=== PATIENT | female | born 1960 | race Caucasian/White ===

== ENCOUNTER → 2016-03-25 | Outpatient (CLI) | payer BC ==
--- NOTE | 2016-03-25 12:00 | MA ---
Screening Digital Mammogram With iCAD Analysis Reason for Examination: Routine screening. Her mother was diagnosed with breast cancer in her 70s. Breast parenchymal density: Type B; Scattered fibroglandular densities. Technique: Four views of each breast are obtained including CC and oblique lateral Jennifer (implant di splaced) and non-Jennifer (implant not displaced) views. Images were reviewed using the iCAD computer a ided detection system. Comparison: March 2015, March 2014, October 2012, October 2011, October 2010, October 2009, October 24.. Findings: Breast implants are in place bilaterally. iCAD is reviewed. No suspicious areas are identif ied. There has been no significant change in the appearance of either breast. Breast implants diminis h the sensitivity of mammography. Impression: Negative mammogram. BI-RADS 1. Recommendation: Routine screening is recommended in one year as long as physical examination is negat [place]. [facility] will send a result letter to the patient. Negative mammography should not preclude additional workup of a clinically suspicious finding. The patient's information is entered into a reminder system with a target due date for her next mammo gram.
== END ==
LOC: BMCIMAGING 08:32
DX: Z12.31 Encounter for screening mammogram for malignant neoplasm of breast (principal); Z80.3 Family history of malignant neoplasm of breast
CPT/HCPCS: G0202

== ENCOUNTER → 2016-05-06 | Outpatient (CLI) | payer BC | LOC: BMCIMAGING 11:27 | PROVIDERS: ATTEND Emergency Medicine | DX: M25.842 Other specified joint disorders, left hand (principal) ==

== ENCOUNTER → 2016-11-18 | Outpatient (CLI) | payer BC | LOC: FIMAGING 09:37 | PROVIDERS: ATTEND Obstetrics & Gynecology | DX: Z13.820 Encounter for screening for osteoporosis (principal) ==

== ENCOUNTER → 2017-03-30 | Outpatient (CLI) | payer BC | LOC: FIMAGING 09:55 | PROVIDERS: ATTEND Obstetrics & Gynecology | DX: Z12.31 Encounter for screening mammogram for malignant neoplasm of breast (principal); Z80.3 Family history of malignant neoplasm of breast ==

== ENCOUNTER 2017-06-22 10:34 | Observation (INO) | payer BC ==
--- NOTE | 2017-06-22 10:43 | EDPHY ---
H & P Time Seen by Provider: 06/22/17 10:37 HPI/ROS: CHIEF COMPLAINT: Abdominal pain HISTORY OF PRESENT ILLNESS: Started on Tuesday night with epigastric discomfort , Tuesday went to her lower abdomen and she could not get warm and developed a fever that night. Today she has pain in her lower abdomen more on the right than the left which is worse with walking and associated with a little bit of dysuria. Radiates a little bit to her right flank into her left lower abdomen. Symptoms mild to moderate and persistent. REVIEW OF SYSTEMS: Eye: no change in vision ENT: no sore throat Cardiac: no chest pain or syncope Pulmonary: no cough or SOB Abdomen: Some chronic diarrhea since March, being worked up with no definitive diagnosis. Musculoskeletal: no back pain Skin: Patient gets a little rash on her belly button between her toes when she gets sick Neuro: no headache Constitutional: Fever and Tuesday as noted : Dysuria no hematuria or frequency A comprehensive 10 point review of systems is otherwise negative aside from elements mentioned in the history of present illness. PAST MEDICAL HISTORY: Hypertension Social history: Nonsmoker, moved to [place] from [place] 10 years ago General Appearance: Alert and conversant, cooperative. Eyes: No scleral icterus. ENT, Mouth: Normal mucous membranes. Respiratory: Normal respiratory effort, breath sounds equal, lungs are clear to auscultation. Cardiovascular: Regular rate and rhythm. Gastrointestinal: Right lower quadrant tenderness with guarding, left lower quadrant palpation causes pain in the right lower quadrant, decreased breath sounds. Neurological: Alert, face symmetric, normal motor and sensory in extremities. Ambulatory. Skin: Warm and dry, no rashes. Musculoskeletal: No CVA tenderness. Psychiatric: Not agitated. Emergency Department course/MDM: Plan for urinalysis, patient declined pain medication, IV fluids. She has abdominal tenderness and differential includes but not limited to appendiceal abscess, appendicitis, diverticulitis. CT scanning discussed and consented. 1137: CT shows appendicitis with appendicolith, plan consult RAJIV Ling 3.375 at his specific request. Results and CT reviewed with the patient at this time. Has 1.2 cm lesion in liver per Shar, needs followup MRI. Patient warned and added to discharge instructions. Smoking Status: Never smoked Constitutional: Initial Vital Signs Temperature (C) 36.7 C 06/22/17 10:34 Heart Rate 92 06/22/17 10:34 Respiratory Rate 16 06/22/17 10:34 Blood Pressure 151/93 H 06/22/17 10:34 O2 Sat (%) 98 06/22/17 10:34 O2 Delivery Mode Room Air Allergies/Adverse Reactions: codeine Allergy (Verified 06/22/17 10:41) Home Medications: Medication Instructions Recorded Amlodipine Besylate 06/22/17 Aspirin 06/22/17 Medical Decision Making - Diagnostics Imaging Results: Imaging Impressions Abdomen CT 06/22/17 11:10 Impression: 1. Acute likely ruptured retrocecal appendicitis with multiple appendicoliths. 2. Indeterminate 1.2 cm structure in the liver, which could represent hemangioma , but cannot characterized on this study. MR abdomen with contrast is recommended for further evaluation. 3. Mild diffuse bladder wall thickening relative to the degree of distention, which could be related to bladder outlet obstruction, inflammation or infection , or other etiology. 4. Additional findings as above. Findings discussed with Dr. Jean-Pierre Robison on 06/22/2017 at 11:45. Discussed with Shar Nelson, appendicitis with appendicolith. Imaging: Discussed imaging studies w/ grease packer Radiologist, I viewed and interpreted images myself Differential Diagnosis: Differential diagnosis considered for abdominal pain including but not limited to appendicitis, diverticulitis, gastritis and urinary tract infection. Consult/Admit Bed Type: [place] [id number] - Data Points Laboratory Results: Laboratory Results 06/22/17 10:50 06/22/17 10:50 06/22/17 06/22/17 06/22/17 10:55 10:50 10:50 WBC 11.96 10^3/uL H 10^3/uL (3.80-9.50) RBC 4.65 10^6/uL 10^6/uL (4.18-5.33) Hgb 15.3 g/dL g/dL (12.6-16.3) Hct 43.3 % % (38.0-47.0) MCV 93.1 fL fL (81.5-99.8) MCH 32.9 pg pg (27.9-34.1) MCHC 35.3 g/dL g/dL (32.4-36.7) RDW 12.1 % % (11.5-15.2) Plt Count 194 10^3/uL 10^3/uL (150-400) MPV 8.4 fL L fL (8.7-11.7) Neut % (Auto) 92.3 % H % (39.3-74.2) Lymph % (Auto) 2.4 % L % (15.0-45.0) [place] % (Auto) 4.6 % % (4.5-13.0) Eos % (Auto) 0.1 % L % (0.6-7.6) Baso % (Auto) 0.3 % % (0.3-1.7) Nucleat RBC Rel Count 0.0 % % (0.0-0.2) Absolute Neuts (auto) 11.04 10^3/uL H 10^3/uL (1.70-6.50) Absolute Lymphs (auto) 0.29 10^3/uL L 10^3/uL (1.00-3.00) Absolute Monos (auto) 0.55 10^3/uL 10^3/uL (0.30-0.80) Absolute Eos (auto) 0.01 10^3/uL L 10^3/uL (0.03-0.40) Absolute Basos (auto) 0.04 10^3/uL 10^3/uL (0.02-0.10) Absolute Nucleated RBC 0.00 10^3/uL 10^3/uL (0-0.01) Immature Gran % 0.3 % % (0.0-1.1) Immature Gran # 0.03 10^3/uL 10^3/uL (0.00-0.10) Sodium 133 mEq/L L mEq/L (135-145) Potassium 4.1 mEq/L mEq/L (3.5-5.2) Chloride 96 mEq/L L mEq/L (97-110) Carbon Dioxide 27 mEq/l mEq/l (22-31) Anion Gap 10 mEq/L mEq/L (8-16) BUN 12 mg/dL mg/dL (7-23) Creatinine 0.9 mg/dL mg/dL (0.6-1.0) Estimated GFR > 60 Glucose 123 mg/dL H mg/dL (70-100) Calcium 9.4 mg/dL mg/dL (8.5-10.4) Urine Color YELLOW Urine Appearance CLEAR Urine pH 7.0 (5.0-7.5) Ur Specific [place] 1.008 (1.002-1.030) Urine Protein NEGATIVE (NEGATIVE) Urine Ketones NEGATIVE (NEGATIVE) Urine Blood 1+ H (NEGATIVE) Urine Nitrate NEGATIVE (NEGATIVE) Urine Bilirubin NEGATIVE (NEGATIVE) Urine Urobilinogen NEGATIVE EU EU (0.2-1.0) Ur Leukocyte Esterase NEGATIVE (NEGATIVE) Urine RBC 1-3 /hpf /hpf (0-3) Urine WBC NONE SEEN /hpf /hpf (0-3) Ur Epithelial Cells TRACE /lpf /lpf (NONE-1+) Urine Glucose NEGATIVE (NEGATIVE) Medications Given: Discontinued Medications Sodium Chloride (Ns) 1,000 mls @ 0 mls/hr IV EDNOW ONE; Wide Open PRN Reason: Protocol Stop: 06/22/17 10:56 Last Admin: 06/22/17 11:08 Dose: 1,000 mls Ceftriaxone Sodium/Dextrose (Rocephin 1 Gm (Premix)) 50 mls @ 100 mls/hr IV EDNOW ONE PRN Reason: Protocol Stop: 06/22/17 12:16 Last Admin: 06/22/17 12:09 Dose: Not Given Metronidazole/Sodium Chloride (Flagyl 500 Mg (Premix)) 100 mls @ 100 mls/hr IV EDNOW ONE PRN Reason: Protocol Stop: 06/22/17 12:46 Last Admin: 06/22/17 12:09 Dose: Not Given Sodium Chloride (Ns) 1,000 mls @ 0 mls/hr IV EDNOW ONE; Wide Open PRN Reason: Protocol Stop: 06/22/17 11:50 Last Admin: 06/22/17 12:05 Dose: 1,000 mls Piperacillin/Tazobactam/Dextrose (Zosyn 3.375 Gm (Premix)) 50 mls @ 100 mls/hr IV EDNOW ONE PRN Reason: Protocol Stop: 06/22/17 12:19 Last Admin: 06/22/17 12:05 Dose: 50 mls Departure - Departure Disposition: [facility] Acute Clinical Impression: Acute appendicitis Qualifiers: Acute appendicitis type: with localized peritonitis Qualified Code(s): K35.3 - Acute appendicitis with localized peritonitis Condition: Good
[2017-06-22] MEDS ORDERED: NS 1,000 ML IV ONE ×2 (10:55→11:49)
[2017-06-22 10:59] LABS: PLATELET COUNT 194 10^3/uL (150-400)
[2017-06-22] MEDS ORDERED: IOPAMIDOL (ISOVUE-300) 100 ML BTL ONE (11:13)
[2017-06-22] MEDS ORDERED: PIPERACILLIN/TAZO 3.375 GM/DEX 50 ML IV ONE (11:50)
[2017-06-22] MEDS ORDERED: LR 1,000 ML IV ONE (13:32)
--- NOTE | 2017-06-22 13:52 | PDANEPAE ---
ANE History of Present Illness acute appendicitis ANE Past Medical History - Pulmonary History Hx Asthma/Reactive Airway Disease: Yes Hx Oxygen in Use at Home: No Hx Sleep Apnea: No - Endocrine History Hx Diabetes: No - Other Health History Other Health History: factor 5 deficiency ANE Review of Systems Review of Systems: ANE Patient History - Allergies Allergies/Adverse Reactions: codeine Allergy (Verified 06/22/17 10:41) - Home Medications Home Medications: Albuterol [Proventil Inhaler HFA (*)] 1 - 2 puffs IH Q4H PRN 06/22/17 [Last Taken Unknown] Aspirin [Aspirin 81mg (*)] 81 mg PO BID 06/22/17 [Last Taken 06/21/17 21:00] Carboxymethylcellulose 1% [Refresh Celluvisc (*)] 1 drop EACHEYE DAILY PRN 06/22 [Last Taken Unknown] Cholecalciferol Vit D3 [Vitamin D3 (*)] 5,000 units PO DAILY 06/22/17 [Last Taken Unknown] Herbals/Supplements -Info Only 1 ea PO DAILY 06/22/17 [Last Taken Unknown] Multivitamins [Multivitamin (*)] 1 each PO DAILY 06/22/17 [Last Taken Unknown] Selenium [Selenium 200mcg (*)] 200 mcg PO DAILY 06/22/17 [Last Taken Unknown] amLODIPine BESYLATE [Norvasc 2.5 mg (*)] 2.5 mg PO HS 06/22/17 [Last Taken 06/21 21:00] - NPO status NPO Since - Liquids (Date): 06/22/17 NPO Since - Liquids (Time): 10:45 NPO Since - Solids (Date): 06/22/17 NPO Since - Solids (Time): 10:45 - Smoking Hx Smoking Status: Never smoked ANE Labs/Vital Signs - Labs Result Diagrams: 06/22/17 10:50 06/22/17 10:50 - Vital Signs Blood Pressure: 137/98 Heart Rate: 89 Respiratory Rate: 18 O2 Sat (%): 98 Height: 170.18 cm Weight: 56.699 kg ANE Physical Exam - Airway Neck exam: FROM Mallampati Score: Class 1 Mouth exam: normal dental/mouth exam - Pulmonary Pulmonary: no respiratory distress - Cardiovascular Cardiovascular: regular rate and rhythym - ASA Status ASA Status: II ANE Anesthesia Plan Anesthesia Plan: general endotracheal anesthesia
--- NOTE | 2017-06-22 14:16 | GHP ---
[f rep st] HISTORY AND PHYSICAL DATE OF ADMISSION: 06/22/2017 ADMITTING DIAGNOSIS: Acute appendicitis with appendicolith. HISTORY: Justa Cummings is a 56-year-old white female who, Tuesday at approximately 10 p.m., had the diffuse onset of an epigastric pain. She slept poorly. By Tuesday morning, it moved down to become periumbilical in location. It became more intense and sharp. She suffered a chill. She had nausea but no vomiting. Tuesday night, she slept poorly. She was not hungry on Tuesday but did eat small amounts of food. She slept poorly last night. She had sips of tea, water, and a fluid smoothie between 9 and 11 this morning. She is not hungry at this point. She has had diarrhea since the of the year. Importantly, she was diagnosed as having irritable bowel disease when she was in college. She has not had a recent upper respiratory tract infection. She has not used antibiotics or traveled outside the [place] in the last 6 months. She has had no prior abdominal surgery and no prior similar symptoms. There is no history of inflammatory bowel disease, though her sister does have Crohn's disease. SOCIAL HISTORY: She is a nonsmoker. She drinks 2 glasses of wine a day. ALLERGIES: She has nausea with codeine. PAST MEDICAL/SURGICAL HISTORY/MEDICATIONS: She was diagnosed with hypertension at the of the month, and has been and on amlodipine 2.5 mg daily. She takes 81 mg aspirin twice a day for factor V Leiden deficiency. This was discovered after a clot in the vein after a blood donation. She had a surgery on her left knee for chronic prepatellar bursa. She had a left biceps reattached. She had wisdom tooth extractions. No history of rheumatic fever, tuberculosis, hepatitis, or transfusions. REVIEW OF SYSTEMS: She is a very active woman who does a lot of rock climbing. There is a question of a concussion in the past. She wears contacts for visual correction. She has exercise-induced asthma and uses an albuterol inhaler p.r.n. She does have allergies. Her last mammogram had been within the year and described as "okay." There are no limits on her activities. No history of steroid use. FAMILY HISTORY: Her mother is 79 years old and has had breast cancer and hypertension. Her father is 80 years old. He has not been tested for factor V Leiden, but his sister has, and she is positive. Her father also has hypertension. The patient has a younger sister, who is 53, and has Crohn's disease. PHYSICAL EXAMINATION: GENERAL: She is awake and alert and in mild distress. Her pain is moderately well controlled at this time. She is quite pleasant. NEUROLOGIC: She is awake, alert, and oriented x3. [place] Coma Scale 15. There are no focal lateralizing neurologic findings. Cranial nerves are intact. LYMPHATIC: There was no cervical, supraclavicular, axillary, or inguinal lymphadenopathy. NECK: There are no carotid bruits. Thyroid is not enlarged. BACK: Unremarkable. LUNGS: Clear to auscultation. CARDIAC: Heart shows S1, S2 to be normal, with normal split of S2 without murmurs, rubs, or gallops. ABDOMEN: Tender with cough at a 4-5 in the suprapubic region. There are hypoactive bowel sounds. Psoas and obturator signs are negative to palpation. She is tender in the left upper quadrant at 2, left mid abdomen is 3 , left lower quadrant is 5, epigastrium is 1, periumbilical area is 2, suprapubic area is 5, right upper quadrant is 3, right mid abdomen is 6, right lower quadrant 7. LABORATORIES: White blood cell count of 12,000 with 92% neutrophils. Hematocrit is 43. Her glucose is 123. Her sodium is 133. Her chloride is 96. Her urine shows specific gravity 1.008. IMAGING: Her CT scan shows an appendix with a thickened wall and periappendiceal stranding. There is an appendicolith present. There is a 1.2 cm structure in the liver, probably consistent with a hemangioma. Followup has been recommended for that. PLAN: I will plan to take her to the operating room for a laparoscopic, possibly open appendectomy. Patient understands the planned procedure and wished to proceed as outlined. /[id number]/MODL MTDD
[2017-06-22] MEDS ORDERED: SUCCINYLCHOLINE CHLORIDE 200 MG/10 ML SYR IVP ONE (14:21)
[2017-06-22] MEDS ORDERED: ROCURONIUM 50 MG/5 ML VIAL ONE (14:21)
[2017-06-22] MEDS ORDERED: fentaNYL 100 MCG/2 ML INJ ONE ×2 (14:21)
[2017-06-22] MEDS ORDERED: PROPOFOL 200 MG/20 ML VIAL ONE (14:22)
[2017-06-22] MEDS ORDERED: HEPARIN 5,000 UNIT/0.5 ML SYR ONE (14:31)
[2017-06-22] MEDS ORDERED: ceFAZolin 1 GM/5 ML SYR ONE (14:32)
[2017-06-22] MEDS ORDERED: HYDROCODONE/APAP 5/325 TAB PO PRN (15:22)
[2017-06-22] MEDS ORDERED: PROMETHAZINE HCL 25 MG/ML INJ IVP PRN (15:22)
[2017-06-22] MEDS ORDERED: fentaNYL 100 MCG/2 ML INJ IVP PRN (15:22)
[2017-06-22] MEDS ORDERED: HYDROmorphONE/DILAUDID 2 MG/ML INJ IVP PRN (15:22)
[2017-06-22] MEDS ORDERED: ONDANSETRON 4 MG/2 ML VIAL IVP PRN ×2 (15:22→16:12)
[2017-06-22] MEDS ORDERED: NALOXONE HCL 0.4 MG/ML INJ IVP PRN (15:22)
[2017-06-22] MEDS ORDERED: ONDANSETRON 4 MG/2 ML VIAL ONE (15:57)
[2017-06-22] MEDS ORDERED: DEXAMETHASONE 4 MG/ML VIAL ONE (15:57)
[2017-06-22] MEDS ORDERED: HYDROmorphone HCL/NS 0.5 MG/ML SYR IVP PRN (16:12)
--- NOTE | 2017-06-22 16:12 | POSTOPPROG ---
Post Op Note Date of Operation: 06/22/17 Surgeon: Gordy Rivera Anesthesia: GET(General Endotracheal) Pre-op Diagnosis: acute appendicitis with appendicolith Post-op Diagnosis: acute appendicitis with appendicolith Indication: acute appendicitis with appendicolith Procedure: laparoscopic appendectomy Findings: acute appendicitis with appendicolith Inf/Abcess present in the surg proc area at time of surgery?: No EBL: Minimal Total fluids administered: 750 Complications: none Specimen(s): appendicitis
[2017-06-22] MEDS ORDERED: MEPERIDINE 25 MG/ML SYR IVP ONE (16:14)
--- NOTE | 2017-06-22 16:14 | POSTANESTH ---
Post Anesthetic Evaluation Cardiovascular Status: Normal, Stable Respiratory Status: Normal, Stable Level of Consciousness/Mental Status: Can Participate in Eval Pain Control: Adequate, Prn Tx Ordered Nausea/Vomiting Control: Adequate, Prn Tx Ordered Complications Possibly Related to Anesthesia: None Noted
[2017-06-22] MEDS ORDERED: MEPERIDINE 25 MG/ML SYR ONE (16:16)
[2017-06-22] MEDS ORDERED: ALBUTEROL 60 PUFFS/8 GM MDI IH PRN (16:20)
[2017-06-22] MEDS ORDERED: LR 1,000 ML IV SCH (16:30)
--- NOTE | 2017-06-22 17:26 | GOP ---
[f rep st] OPERATIVE REPORT DATE OF OPERATION: 06/22/2017 SURGEON: Gordy Rivera MD ANESTHESIA: General endotracheal anesthesia. PREOPERATIVE DIAGNOSIS: Acute appendicitis with appendicolith. POSTOPERATIVE DIAGNOSIS: Acute appendicitis with appendicolith. PROCEDURE PERFORMED: Laparoscopic appendectomy. FINDINGS: Acute appendicitis with appendicolith. SPECIMENS: Appendix. ESTIMATED BLOOD LOSS: Minimal. INDICATIONS: Acute appendicitis with appendicolith. DESCRIPTION OF PROCEDURE: The patient was placed on the operating table in supine position. She had emptied her bladder prior to surgery. The abdomen was carefully clipped and prepped and draped. A surgical time-out was carried out and agreed to by all members of the operative team. A curvilinear incision was planned at the umbilicus and carried through the dermis. A transverse suprapubic incision was planned and carried through the dermis as is a left lower quadrant oblique incision. The dissection was carried out at the umbilicus down to the anterior rectus sheath which was divided in the midline. A pursestring of #0 PDS was placed. The peritoneum was entered. An 11/12 mm disposable Laura trocar was introduced. Intra- abdominal insufflation was carried out to 15 mmHg. A 5 mm port was placed in the left lower quadrant in the suprapubic region. The patient was now placed in 25 degree Trendelenburg position, rotated 5 degrees to the left. The appendix was adherent to the anterior mesenteric fat of the terminal ileum. The appendix was enlarged and inflamed. Photographic documentation was carried out. The appendix was divided down to its base using a Harmonic scalpel. The appendix was now excised using a 45 mm Endo-IRASEMA (2 applications) to take a cuff of cecum with the appendix because the inflammation extends onto the cecum itself. Once the specimen has been resected, it was placed in an EndoCatch bag and delivered via the umbilical port site. Note is made that the fluid in the pelvis is yellow and clear. Irrigation with heparin and Ancef containing irrigant was carried out. Photographic documentation of both ovaries was carried out. Photographic documentation of the liver was carried out as well. Note, the appendix and the resection line had also been photographed. Hemostasis was excellent. Ports were removed under direct vision. The infraumbilical fascial closure was carried out by first placing simple inverted suture in the midpoint of the midline fascial defect. This was tied. The pursestring was now tied. The subcutaneous tissue was well irrigated with heparin and Ancef containing irrigant. Hemostasis was excellent. All incisions were now closed with inverted simple sutures of #4-0 Vicryl. Mastisol and Steri-Strips were placed. Band-Aids were positioned. The patient was transferred to recovery in stable and satisfactory condition. FLUIDS: 750 cc. COMPLICATIONS: None. /[id number]/MODL MTDD
[2017-06-22] MEDS: ACETAMINOPHEN 500 MG TAB PO SCH (17:57)
[2017-06-22] MEDS: KETOROLAC 15 MG/1 ML SDV IVP SCH (17:59)
[2017-06-22] MEDS: PIPERACILLIN/TAZO 3.375 GM/DEX 50 ML IV SCH (18:04)
[2017-06-22] MEDS ORDERED: ASPIRIN 81 MG CHEWABLE TAB PO SCH (21:00)
[2017-06-22] MEDS: ENOXAPARIN 30 MG/0.3 ML SYR SC SCH (21:15)
[2017-06-23] MEDS: PIPERACILLIN/TAZO 3.375 GM/DEX 50 ML IV SCH (00:13)
[2017-06-23] MEDS: KETOROLAC 15 MG/1 ML SDV IVP SCH ×3 (00:14→12:38)
[2017-06-23] MEDS: ACETAMINOPHEN 500 MG TAB PO SCH ×2 (00:14→09:09)
[2017-06-23] MEDS: ENOXAPARIN 30 MG/0.3 ML SYR SC SCH (09:10)
--- NOTE | 2017-06-23 11:35 | SOAPPROG ---
SOAP Progress Note Assessment/Plan: 06/23/17 11:31 POD#1 Assessment: Doing well, Eating, passing stool, feels much better Plan: Discharge Subjective: I feel much better Objective: Vital Signs Temp Pulse Resp BP Pulse Ox 36.6 C 64 16 101/59 L 95 06/23/17 03:55 06/23/17 03:55 06/23/17 03:55 06/23/17 03:55 06/23/17 03:55 06/22/17 06/23/17 06/24/17 05:59 05:59 05:59 Intake Total 1250 1738 Output Total 905 Balance 345 1738 - Time Spent With Patient Time Spent With Patient: 15 - Pending Discharge Pending Discharge Within 24 Hours: Yes Pending Discharge Date: 06/23/17 Pending Discharge Time: 13:00 Physical Exam - Physical Exam General Appearance: WD/WN, alert, no apparent distress Neck: full range of motion, supple, normal inspection Respiratory: chest non-tender, lungs clear, normal breath sounds Cardiac/Chest: regular rate, rhythm Abdomen: normal bowel sounds, non-tender, soft Pelvic Exam: deferred Rectal: deferred Back: Normal inspection Skin: normal color, other (Incisions - clean and dry) Neuro/Psych: no motor/sensory deficits, alert, normal mood/affect, oriented x 3 ICD10 Worksheet Patient Problems: Problems Problem Status Onset Acute appendicitis Acute
[2017-06-23 11:42] VITALS: BP 117/71
--- NOTE | 2017-06-23 13:16 | GDS ---
[f rep st] DISCHARGE SUMMARY DISCHARGE DIAGNOSES: Acute appendicitis with appendicolith. Condition improved. OPERATION PERFORMED: Laparoscopic appendectomy. DISPOSITION: Home. DIET: Unrestricted, although I recommend that she avoid constipating foods such as bananas, rice, ap plesauce, and cheese. Texture is unremarkable. MEDICATIONS AT DISCHARGE: She will take for pain, Tylenol 1000 mg every 8 hours around the clock. S he will take Toradol 10 mg every 6 hours and when the 12 pills have been completed, she will take 200 mg of Motrin as needed. She will be given 15 tablets of 2 mg of Dilaudid. She is to take 1-2 table ts every 4 hours as needed for severe pain. She will continue her Norvasc 2.5 mg q.h.s., her seleniu m 200 mcg daily, her cholecalciferol 5000 units daily, a multivitamin daily. She is to make sure her multivitamin contains 100% of the RDUs of zinc, copper, and C. She will continue her herbal supplem ents. She will use her Proventil inhaler 1-2 puffs q.4 as needed. She will continue her carboxymeth ylcellulose 1% eyedrops. She will discontinue her aspirin. She will use Lovenox 30 mg subcu b.i.d. because of her factor V Leiden deficiency for the next 10 days. ACTIVITY: She is to follow up with her family doctor for an MRI for evaluation of her abdomen for wh at appears to be a possible hemangioma. For 3 weeks she is to lift less than 10 pounds. She is to s hower only to keep her Steri-Strips in place. She is to watch for signs of infection. The superfici al signs of infection will be redness, warmth, swelling, and tenderness. The deep signs will be fati khadijah, malaise, loss of appetite, fevers, and chills. She is to follow up with Dr. Mj Allison, Dr. Carissa Benedict, Dr. Ronaldo Aguillon in approximately 2 weeks for re-evaluation. HOSPITAL COURSE: The patient is admitted and taken to the operating room. She has done quite well a fter surgery. As of the morning after surgery, she has moved her bowels. She is taking a regular di et. Her pain is well controlled. In short, she is set for discharge. /[id number]/MODL
== END 2017-06-23 13:12 | disposition home or self-care (01) ==
LOC: F3E 15:08
PROVIDERS: ADMIT Surgery; ATTEND Surgery
PROC: 0DTJ4ZZ Resection of Appendix, Percutaneous Endoscopic Approach (ICD-10-PCS; principal; 2017-06-22 14:15)
DX: K35.89 Other acute appendicitis (principal); D68.2 Hereditary deficiency of other clotting factors; K76.9 Liver disease, unspecified
CPT/HCPCS: 44970; 74177; 96361; 96365; 99285; G0378; J0330; J1100; J1644; J1650; J1885; J2175; J2405; J2543; J2704; J3010; Q9967

== ENCOUNTER → 2017-07-13 | Outpatient (CLI) | payer BC | LOC: BMCIMAGING 15:10 | PROVIDERS: ATTEND Family Medicine | DX: E04.2 Nontoxic multinodular goiter (principal) | CPT/HCPCS: 76536-PO ==

== ENCOUNTER 2017-10-30 19:14 | Emergency (ER) | payer BC ==
[2017-10-30] MEDS ORDERED: NS 1,000 ML IV ONE (19:51)
--- NOTE | 2017-10-30 19:53 | EDPHY ---
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 Last chemotherapy was 2.5 weeks ago. Since the chemotherapy, she has felt quite fatigued, much more so than with the first round of chemo. Mainly laying around the house and sleeping much of the day. Onset of intermittent abdominal pain 2-3 days ago, associated with nausea. The pain varies in location and is mild/moderate. Low-grade fever of 100 associated with shaking chills started just prior to arrival. No URI sx, dysuria, vomiting/diarrhea, rash. REVIEW OF SYSTEMS: complete 10 point ROS negative except at noted in the HPI - Personal History Current Tetanus/Diphtheria Vaccine: Yes Current Tetanus Diphtheria and Acellular Pertussis (TDAP): Yes - Medical/Surgical History PMH: Appendiceal CA, s/p partial colectomy appendecomy Hx Asthma: Yes Hx Chronic Respiratory Disease: No Hx Diabetes: No Hx Cardiac Disease: No Hx Renal Disease: No Hx Cirrhosis: No Hx Alcoholism: No Hx HIV/AIDS: No Hx Splenectomy or Spleen Trauma: No Other PMH: HTN. - Social History Smoking Status: Never smoked Alcohol Use: Sober Drug Use: None Additional Social History: Oncologist: Dr. Almaguer - Physical Exam Exam: General Appearance: Alert, pleasant, nontoxic-appearing Eyes: Pupils equal and round, no conjunctival pallor or injection ENT, Mouth: Mucous membranes moist, no oral lesions Neck: Normal inspection, no adenopathy Respiratory: Lungs are clear to auscultation Cardiovascular: Regular rate and rhythm Gastrointestinal: Abdomen is soft, epigastric/LUQ and suprapubic tenderness, without peritoneal signs Neurological: A&O, nonfocal, normal gait Skin: Warm and dry, no rash Extremities: Nontender, no pedal edema Psychiatric: Mood and affect normal Constitutional: Initial Vital Signs Temperature (C) 37.7 C 10/30/17 19:20 Heart Rate 87 10/30/17 19:20 Respiratory Rate 18 10/30/17 19:20 Blood Pressure 144/79 H 10/30/17 19:20 O2 Sat (%) 97 10/30/17 19:20 O2 Delivery Mode Room Air Allergies/Adverse Reactions: codeine Allergy (Verified 10/30/17 19:29) oxycodone Allergy (Verified 10/30/17 19:29) Home Medications: Medication Instructions Recorded Albuterol [Proventil Inhaler HFA 1 - 2 puffs IH Q4H PRN 06/22/17 (*)] Carboxymethylcellulose 1% [Refresh 1 drop EACHEYE DAILY PRN 06/22/17 Celluvisc (*)] Cholecalciferol Vit D3 [Vitamin D3 5,000 units PO DAILY 06/22/17 (*)] Herbals/Supplements -Info Only 1 ea PO DAILY 06/22/17 Multivitamins [Multivitamin (*)] 1 each PO DAILY 06/22/17 amLODIPine BESYLATE [Norvasc 2.5 2.5 mg PO HS 06/22/17 mg (*)] Acetaminophen [Tylenol ES 500 mg 1,000 mg PO Q8H tab 06/23/17 (*)] Capecitabine 10/30/17 Cefdinir [Omnicef (*)] 300 mg PO BID #20 cap 10/30/17 Dexamethasone 10/30/17 OXALIplatin 10/30/17 Ondansetron [Ondansetron Odt] 8 mg PO ONCE 10/30/17 Medical Decision Making - Diagnostics Imaging Results: Abdomen CT 10/30/17 19:51 Impression:1. Abnormal matted, thick walled loops of jejunum in the left flank may represent evidence of an internal hernia or enteritis. 2. Constipation versus lower sigmoid-rectal fecal impaction. 3. Gastric distention. Might this patient benefit from an NG tube? 4. Chronic mild urinary bladder wall thickening. UTI? 4. Stable single small hepatic lesion of undetermined clinical significance. Results discussed with Dr. Cannon at 8:57 PM. General information for patients regarding this examination can be found at [email or web address]. If you have questions or comments about this report, please contact me at (hospital) or [phone] (cell). Chest X-Ray 10/30/17 19:51 Impression: Normal chest. No pneumonia. Imaging: Discussed imaging studies w/ fisher scallop Radiologist, I viewed and interpreted images myself ED Course/Re-evaluation: This patient presents with low-grade fever 2.5 weeks after last chemotherapy, associated with abdominal pain and nausea, without peritoneal signs. Fever workup initiated, with chest x-ray, urinalysis and CT scan of the abdomen and pelvis. 8:30 p.m.-not neutropenic, white blood cell count is 3.3. Chest x-ray is unremarkable. CT scan results d/w pt/. Dip urinalysis is positive for leukocytes and nitrates. Urine culture sent. Will treat for urinary tract infection. Keflex 500 mg orally given. Prescription for Omnicef given. Follow up with oncologist in 1-2 days for recheck. Differential Diagnosis: Differential diagnosis includes pyelonephritis, cholecystitis, influenza, cellulitis, pneumonia, abscess, meningitis. - Data Points Laboratory Results: Laboratory Results 10/30/17 19:43 10/30/17 19:43 Microbiology Results: MICROBIOLOGY 10/30/17 19:43 Blood Blood Culture - Preliminary 10/30/17 20:02 Blood Blood Culture - Preliminary 10/30/17 20:45 Urine,Clean Catch Urine Culture - Preliminary Gram Neg Srinivas Lactose Lining Finisher Medications Given: Discontinued Medications Cephalexin HCl (Keflex) 500 mg PO EDNOW ONE PRN Reason: Protocol Stop: 10/30/17 21:06 Last Admin: 10/30/17 21:14 Dose: 500 mg Sodium Chloride (Ns) 1,000 mls @ 0 mls/hr IV ONCE ONE; Wide Open PRN Reason: Protocol Stop: 10/30/17 19:52 Last Admin: 10/30/17 20:01 Dose: 1,000 mls Point of Care Test Results: Urine Dip Collection Date 10/30/17 Collection Time 20:45 Specific [place] (1.002-1.030) 1.005 PH (5.0-7.5) 6.5 Leukocytes (Negative) 2+ Nitrites (Negative) Positive Protein (Negative) Negative Glucose (Negative) Negative Ketones (Negative) Negative Urobilnogen (0.2-1.0 EU) 0.2 Bilirubin (Negative) Negative Blood (Negative) Negative Departure - Departure Disposition: Home, Routine, Self-Care Clinical Impression: Urinary tract infection Qualifiers: Urinary tract infection type: acute cystitis Hematuria presence: without hematuria Qualified Code(s): N30.00 - Acute cystitis without hematuria Condition: Good Instructions: Urinary Tract Infection in Children (ED), Urinary Tract Infection in Women (ED) Additional Instructions: Return for worsening symptoms or any concerns. Referrals: Andorsky,Adi, MD [Medical Doctor] - 1-2 days without fail Prescriptions: Cefdinir [Omnicef (*)] 300 mg PO BID #20 cap
[2017-10-30 19:57] LABS: PLATELET COUNT 103 10^3/uL (150-400)
[2017-10-30] MEDS ORDERED: IOPAMIDOL (ISOVUE-300) 100 ML BTL ONE (20:19)
[2017-10-30] MEDS ORDERED: CEPHALEXIN 500 MG CAP PO ONE (21:05)
[2017-10-30 21:16] VITALS: BP 141/85
== END 2017-10-30 21:18 | disposition home or self-care (01) ==
DX: N30.00 Acute cystitis without hematuria (principal)
CPT/HCPCS: Q9967

== ENCOUNTER → 2017-11-11 | Outpatient (CLI) | payer BC | LOC: FIMAGING 14:21 | PROVIDERS: ATTEND Obstetrics & Gynecology | DX: N63.10 Unspecified lump in the right breast, unspecified quadrant (principal); N63.20 Unspecified lump in the left breast, unspecified quadrant ==

== ENCOUNTER 2018-01-20 10:39 | Day surgery (SDC) | payer BC ==
[2018-01-20] MEDS ORDERED: ceFAZolin 2 GM/DEXTROSE 100 ML IV ONE (11:08)
--- NOTE | 2018-01-20 13:27 | PDHPUP ---
History & Physical Update H&P update statement: This history and physical update is based on an assessment of the patient which was completed after admission or registration (within 24 hours), but prior to the surgery/procedure. H&P update: H&P reviewed & patient examined, no change in patient's condition since H&P completed
[2018-01-20] MEDS ORDERED: MIDAZOLAM 2 MG/2 ML VIAL IVP ONE (14:27)
--- NOTE | 2018-01-20 14:42 | PDANEPAE ---
ANE History of Present Illness Laparoscopic ventral hernia Khadijah SUN Past Medical History - Cardiovascular History Hx Hypertension: No Hx Arrhythmias: No Hx Chest Pain: No Hx Coronary Artery / Peripheral Vascular Disease: No Hx CHF / Valvular Disease: No Hx Palpitations: No Cardiovascular History Comment: current blood clot in left upper arm- no blood pressures or iv please - Pulmonary History Hx COPD: No Hx Asthma/Reactive Airway Disease: Yes Hx Recent Upper Respiratory Infection: No Hx Oxygen in Use at Home: No Hx Sleep Apnea: No Sleep Apnea Screening Result - Last Documented: Negative Pulmonary History Comment: occ asthma- instructed pt to bring inhaler - Neurologic History Hx Cerebrovascular Accident: No Hx Seizures: No Hx Dementia: No - Endocrine History Hx Diabetes: No Hypothyroid: No Hyperthyroid: No - Renal History Hx Renal Disorders: No - Liver History Hx Hepatic Disorders: No - Cancer History Hx Cancer: Yes Cancer History Comment: appendix ca with surgery and chemo 09/2017- 12/2017 - Congenital Disorder History Hx Congenital Disorders: No - GI History Hx Gastrointestinal Disorders: Yes Gastrointestinal History Comment: hx of hemicolectomy - Other Health History 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 wears contacts. tiny residual of hand foot from chemo treatment - Chronic Pain History Chronic Pain: No - Surgical History Prior Surgeries: 07/22/17 right hemicolectomy and omentum. 06/22/[address] Rivera. 2013 removal of free patella- left. 2006 breast augmentation. 2013 repair of torn bicep- left ANE Review of Systems Review of Systems: - Exercise capacity METS (RN): 4 METS ANE Patient History - Allergies Allergies/Adverse Reactions: codeine Allergy (Verified 01/13/18 15:59) nausea oxycodone Allergy (Verified 01/13/18 15:59) nausea - Home Medications Home Medications: Herbals/Supplements -Info Only 06/22/17 [Last Taken 01/13/18] Albuterol PRN 01/13/18 [Last Taken Unknown] Aspirin 81mg (*) 01/13/18 [Last Taken 01/13/18] Flonase Nasal [place] 01/13/18 [Last Taken Unknown] Nitrofurantoin 01/13/18 [Last Taken Unknown] Noritate 1% Cr (RX) 01/13/18 [Last Taken Unknown] - NPO status NPO Status: no food or drink >8 hours NPO Since - Liquids (Date): 01/20/18 NPO Since - Liquids (Time): 09:00 NPO Since - Solids (Date): 01/19/18 NPO Since - Solids (Time): 20:00 - Anes Hx Anes Hx: no prior problems, post operative nausea - Smoking Hx Smoking Status: Never smoked Marijuana use: No - Alcohol Use Alcohol Use: Rarely - Family Anes Hx Family Hx Anesthesia Complications: none ANE Labs/Vital Signs - Vital Signs Heart Rate: 67 Respiratory Rate: 16 O2 Sat (%): 97 Height: 168.91 cm Weight: 54.431 kg ANE Physical Exam - Airway Neck exam: FROM Mallampati Score: Class 2 Mouth exam: normal dental/mouth exam, poor dentition - Cardiovascular Cardiovascular: regular rate and rhythym, no murmur, rub, or gallop - ASA Status ASA Status: II ANE Anesthesia Plan Anesthesia Plan: general endotracheal anesthesia
[2018-01-20] MEDS ORDERED: fentaNYL 250 MCG/5 ML INJ ONE (14:48)
[2018-01-20] MEDS ORDERED: PROPOFOL/EMULSION 500 MG/50 ML BOTTLE IV ONE (14:48)
[2018-01-20] MEDS ORDERED: BUPIVACAINE 0.5% 30 ML SDV ONE (15:01)
[2018-01-20] MEDS ORDERED: DEXAMETHASONE 4 MG/ML VIAL ONE (16:07)
[2018-01-20] MEDS ORDERED: ROCURONIUM 100 MG/10 ML VIAL ONE (16:07)
[2018-01-20] MEDS ORDERED: ONDANSETRON 4 MG/2 ML VIAL ONE (16:08)
[2018-01-20] MEDS ORDERED: PROPOFOL 200 MG/20 ML VIAL ONE (16:09)
[2018-01-20] MEDS ORDERED: NALOXONE HCL 0.4 MG/ML INJ IVP PRN (16:12)
[2018-01-20] MEDS ORDERED: ONDANSETRON 4 MG/2 ML VIAL IVP PRN (16:12)
[2018-01-20] MEDS ORDERED: PROMETHAZINE HCL 25 MG/ML INJ IVP PRN (16:12)
[2018-01-20] MEDS ORDERED: HYDROCODONE/APAP 5/325 TAB PO PRN (16:12)
[2018-01-20] MEDS ORDERED: fentaNYL 100 MCG/2 ML INJ IVP PRN (16:12)
--- NOTE | 2018-01-20 16:17 | POSTOPPROG ---
Post Op Note Date of Operation: 01/20/18 Surgeon: Casi Benedict Anesthesiologist: sojna Anesthesia: GET(General Endotracheal) Pre-op Diagnosis: ventral hernia Post-op Diagnosis: same Indication: 57 yo s/p right selin with ventral hernia Procedure: davinci ventral hernia repair Findings: 1 cm umbilical defect and diastasis Inf/Abcess present in the surg proc area at time of surgery?: No Specimen(s): none
[2018-01-20] MEDS ORDERED: SUGAMMADEX SODIUM 200 MG/2 ML VIAL IVP ONE (16:24)
[2018-01-20] MEDS ORDERED: fentaNYL 100 MCG/2 ML INJ ONE (16:50)
[2018-01-20 18:21] VITALS: BP 157/106
--- NOTE | 2018-01-22 05:58 | GOP ---
DATE OF OPERATION: 01/20/2018 SURGEON: Casi Benedict MD RADIOCOMMUNICATIONS TECHNICIAN: Honey Burciaga, MARKELL. ANESTHESIA: General. ANESTHESIOLOGIST: Mayra Garrett MD. PREOPERATIVE DIAGNOSIS: Ventral hernia. POSTOPERATIVE DIAGNOSIS: Ventral hernia. PROCEDURE PERFORMED: Da Hua ventral hernia repair. FINDINGS: 1 cm umbilical defect and diastasis. SPECIMENS: None. INDICATIONS: The patient is a 57-year-old woman who underwent right hemicolectomy. She developed a hernia at her midline. DESCRIPTION OF PROCEDURE: Patient was brought into the operating room, placed supine on the table, a nd general anesthesia was administered. Her abdomen was prepped and draped in the usual sterile fas ion. I infiltrated all sites with 0.5% Marcaine prior to making incisions. I made an incision in th e mid portion of her abdomen. I elevated it, and I inserted the Veress needle. Her abdomen insuffla luis easily to a pressure of 15 mmHg with a 5 mm trocar and the camera, I explored her abdomen. No in juries from Veress needle placement. Under direct vision I placed two 8 mm da Hua ports on the lat eral abdomen and then, I upsized her central port for the camera port. She had a 1 cm defect by her umbilicus. She also appeared to have some diastasis and widening where the previous suture repair wa s performed. I used 0 V-Loc 180, and I sutured the defect closed. Since the defect was so small, I did not feel that mesh was indicated, especially since this would need to be placed in the peritoneal cavity. Trocars were removed under direct vision. The abdomen was allowed to desufflate. Skin bonilla sed with 4-0 Monocryl. Dermabond applied. She was awakened in the operating room, extubated, transf erred to PACU in stable condition. /[id number]/MODL
== END 2018-01-20 18:45 | disposition home or self-care (01) ==
LOC: FSGY 10:39
PROVIDERS: ATTEND Surgery
PROC: 8E0W4CZ Robotic Assisted Procedure of Trunk Region, Percutaneous Endoscopic Approach (ICD-10-PCS; 2018-01-20)
PROC: 0WQF4ZZ Repair Abdominal Wall, Percutaneous Endoscopic Approach (ICD-10-PCS; principal; 2018-01-20 12:00)
DX: K43.2 Incisional hernia without obstruction or gangrene (principal); M62.08 Separation of muscle (nontraumatic), other site; I10 Essential (primary) hypertension; D68.51 Activated protein C resistance; J45.990 Exercise induced bronchospasm; Z85.038 Personal history of other malignant neoplasm of large intestine; Z90.49 Acquired absence of other specified parts of digestive tract; Z92.21 Personal history of antineoplastic chemotherapy
CPT/HCPCS: J0690; J1100; J2250; J2405; J2704; J3010

== ENCOUNTER 2018-04-13 18:04 | Inpatient (IN) | payer BC ==
--- NOTE | 2018-04-13 18:22 | EDPHY ---
H & P Stated Complaint: RLQ abd pain - Personal History Current Tetanus/Diphtheria Vaccine: Yes Current Tetanus Diphtheria and Acellular Pertussis (TDAP): Yes - Medical/Surgical History Hx Asthma: Yes Hx Chronic Respiratory Disease: No Hx Diabetes: No Hx Cardiac Disease: No Hx Renal Disease: No Hx Cirrhosis: No Hx Alcoholism: No Hx HIV/AIDS: No Hx Splenectomy or Spleen Trauma: No Other PMH: HTN, appy, appendix CA - Social History Smoking Status: Never smoked <[place] White - Last Filed: 04/13/18 21:45> <Brittany Barrera - Last Filed: 04/14/18 04:22> Time Seen by Provider: 04/13/18 18:22 HPI/ROS: CHIEF COMPLAINT: Abdominal pain HISTORY OF PRESENT ILLNESS: 57-year-old female arrives via private vehicle complaining of abdominal pain started approximately 7:00 a.m. Today became progressively worse throughout the day. The patient's medical history significant for appendiceal cancer with subsequent right hemicolectomy in June 2017 at [facility]. She is chronically loose stool. Today she was riding the bus, developed abdominal pain , multiple episodes of vomiting. Bowel movements at baseline. No melena hematochezia. Patient was seen at [facility] had abdominal x-ray and urinalysis performed and referred to the ER for evaluation. PRIMARY CARE PROVIDER: REVIEW OF SYSTEMS: 10 systems reviewed and negative with the exception of the elements mentioned in the history of present illness PAST MEDICAL & SURGICAL HISTORY: Hemicolectomy. Appendix cancer. SOCIAL HISTORY: Nonsmoker. No drug use. PHYSICAL EXAM (Prior to examination, patient consented to physical exam, hands were washed and my usual and customary physical exam procedures followed) 1) GENERAL: Well-developed, well-nourished, alert and oriented. Appears is uncomfortable, guarding abdomen. 2) HEAD: Normocephalic, atraumatic 3) HEENT: Pupils equal, round, reactive to light bilaterally. Sclera anicteric. Nasopharynx, oropharynx, clear, no lesions. Dry mucous membranes. 4) NECK: Full range of motion, no meningeal signs. 5) LUNGS: Clear auscultation bilaterally, no wheezes, no rhonchi, no retractions. 6) HEART: Regular rate and rhythm, no murmur, no heave, no gallop. 7) ABDOMEN: Surgical scars noted. Diffusely tender to palpation periumbilical region. No distention. No tympany. Negative Agustin's. 8) MUSCULOSKELETAL: Moving all extremities, no focal areas of tenderness, no obvious trauma. No peripheral edema or discoloration. 9) BACK: No CVA tenderness, no midline vertebral tenderness, no fluctuance, no step-off, no obvious trauma, no visual or palpable abnormality. 10) SKIN: No rash, no petechiae. 11) Psychiatric: Patient is oriented X 3, there is no agitation. DIFFERENTIAL DIAGNOSIS: In no particular order including but not limited to bowel obstruction, malignancy, gastroenteritis ([place] White) Constitutional: Initial Vital Signs Temperature (C) 37.2 C 04/13/18 18:13 Heart Rate 73 04/13/18 18:13 Respiratory Rate 16 04/13/18 18:13 Blood Pressure 161/111 H 04/13/18 18:13 O2 Sat (%) 97 04/13/18 18:13 O2 Delivery Mode Room Air Allergies/Adverse Reactions: codeine Allergy (Verified 01/13/18 15:59) nausea oxycodone Allergy (Verified 01/13/18 15:59) nausea tramadol Allergy (Verified 04/13/18 20:52) nausea Home Medications: Medication Instructions Recorded Herbals/Supplements -Info Only 1 ea MISC AD 06/22/17 Albuterol [Proventil Inhaler HFA 2 puffs IH DAILY PRN #0 01/13/18 (*)] Aspirin [Aspirin 81mg (*)] 81 mg PO HS #0 01/13/18 Fluticasone Nasal [Flonase Nasal 1 sprays EACHNARE BID #0 01/13/18 [place] (RX)] metroNIDAZOLE 1% [Noritate 1%] 1 iman TP BID PRN #0 01/13/18 Multivitamins [Multivitamin (*)] 1 each PO DAILY 04/13/18 [place]-3 Fatty Acids [Fish Oil 1000 1,000 mg PO DAILY 04/13/18 mg (*)] Medical Decision Making <[place] White - Last Filed: 04/13/18 21:45> - Diagnostics Imaging: Discussed imaging studies w/ call taker Radiologist <Brittany Barrera - Last Filed: 04/14/18 04:22> - Diagnostics Imaging Results: Imaging Impressions Abdomen CT 04/13/18 19:16 Impression: 1. Gastric submucosal thickening, more pronounced than on the previous study. As clinically directed, endoscopy could be considered for additional assessment. 2. Status post appendectomy and partial right colectomy. 3. Trace fluid in the right upper quadrant of the abdomen (this was also present on the 10/22 study). Findings were discussed with BRITTANY BARRERA MD at 20:30, on 04/13/2018. Imaging Impressions Abdomen CT 04/13/18 19:16 Impression: 1. Gastric submucosal thickening, more pronounced than on the previous study. As clinically directed, endoscopy could be considered for additional assessment. 2. Status post appendectomy and partial right colectomy. 3. Trace fluid in the right upper quadrant of the abdomen (this was also present on the 10/22 study). Findings were discussed with BRITTANY BARRERA MD at 20:30, on 04/13/2018. Images reviewed myself ([place] White) ED Course/Re-evaluation: Care of patient under supervision of secondary supervising physician Dr Barrera with whom I discussed case and also evaluated patient. Discussed with the patient her imaging results showing thickening of the stomach however no surgical abdominal pathology. She remains uncomfortable. We discussed hospital admission for observation, continued hydration and pain control, possible GI consultation for upper GI endoscopic evaluation. Doubt acute cholecystitis. Doubt acute pancreatitis. Patient is agreeable with this plan. 8:55 p.m.: Consultation with hospitalist Dr. Gomez who will admit patient. ( Modesto White) Other Provider: PHYSICIAN DOCUMENTATION: The patient was evaluated and managed by the Physician Harness Worker and myself. I have reviewed the chart and agree with the findings and plan of care as documented. In addition, I examined the patient myself at 1835. History confirmed as the abdominal pain nontraumatic with history of appendectomy and hemicolectomy. Physical findings as follows: Vital signs reviewed including afebrile with normal heart rate. Plan for CT abdomen and pelvis discussed and consented. Fentanyl IV for pain, her medication allergies are nausea. 2034: [facility] per [facility] shows thickened stomach, otherwise not changed from previous. Still symptomatic, admit for further evaluation. I am the secondary supervising physician. (Brittany Barrera) - Data Points Laboratory Results: Laboratory Results 04/13/18 19:00 04/13/18 19:00 04/13/18 04/13/18 04/13/18 19:55 19:13 19:00 WBC RBC Hgb POC Hgb 16.3 gm/dL gm/dL (12.6-16.3) Hct POC Hct 48 % H % (38-47) MCV MCH MCHC RDW Plt Count MPV Neut % (Auto) Lymph % (Auto) [place] % (Auto) Eos % (Auto) Baso % (Auto) Nucleat RBC Rel Count Absolute Neuts (auto) Absolute Lymphs (auto) Absolute Monos (auto) Absolute Eos (auto) Absolute Basos (auto) Absolute Nucleated RBC Immature Gran % Immature Gran # POC Sodium 134 mEq/L L mEq/L (135-145) Sodium POC Potassium 3.8 mEq/L mEq/L (3.3-5.0) Potassium POC Chloride 97 mEq/L mEq/L (97-110) Chloride Carbon Dioxide POC Total CO2 22 mEq/L mEq/L (22-31) Anion Gap POC BUN 14 mg/dL mg/dL (7-23) BUN Creatinine POC Creatinine 0.9 mg/dL mg/dL (0.6-1.0) Estimated GFR Glucose POC Glucose 118 mg/dL H mg/dL (70-100) Calcium Total Bilirubin Conjugated Bilirubin Unconjugated Bilirubin AST ALT Alkaline Phosphatase Total Protein Albumin Lipase Beta HCG, Qual NEGATIVE Urine Color PALE YELLOW Urine Appearance CLEAR Urine pH 7.0 (5.0-7.5) Ur Specific [place] 1.025 (1.002-1.030) Urine Protein NEGATIVE (NEGATIVE) Urine Ketones TRACE H (NEGATIVE) Urine Blood NEGATIVE (NEGATIVE) Urine Nitrate NEGATIVE (NEGATIVE) Urine Bilirubin NEGATIVE (NEGATIVE) Urine Urobilinogen NEGATIVE EU EU (0.2-1.0) Ur Leukocyte Esterase NEGATIVE (NEGATIVE) Urine RBC 1-3 /hpf /hpf (0-3) Urine WBC 1-3 /hpf /hpf (0-3) Ur Epithelial Cells TRACE /lpf /lpf (NONE-1+) Urine Glucose NEGATIVE (NEGATIVE) 04/13/18 04/13/18 19:00 19:00 WBC 7.11 10^3/uL 10^3/uL (3.80-9.50) RBC 4.89 10^6/uL 10^6/uL (4.18-5.33) Hgb 15.9 g/dL g/dL (12.6-16.3) POC Hgb Hct 44.2 % % (38.0-47.0) POC Hct MCV 90.4 fL fL (81.5-99.8) MCH 32.5 pg pg (27.9-34.1) MCHC 36.0 g/dL g/dL (32.4-36.7) RDW 11.9 % % (11.5-15.2) Plt Count 217 10^3/uL 10^3/uL (150-400) MPV 8.0 fL L fL (8.7-11.7) Neut % (Auto) 86.6 % H % (39.3-74.2) Lymph % (Auto) 9.6 % L % (15.0-45.0) [place] % (Auto) 3.1 % L % (4.5-13.0) Eos % (Auto) 0.0 % L % (0.6-7.6) Baso % (Auto) 0.3 % % (0.3-1.7) Nucleat RBC Rel Count 0.0 % % (0.0-0.2) Absolute Neuts (auto) 6.16 10^3/uL 10^3/uL (1.70-6.50) Absolute Lymphs (auto) 0.68 10^3/uL L 10^3/uL (1.00-3.00) Absolute Monos (auto) 0.22 10^3/uL L 10^3/uL (0.30-0.80) Absolute Eos (auto) 0.00 10^3/uL L 10^3/uL (0.03-0.40) Absolute Basos (auto) 0.02 10^3/uL 10^3/uL (0.02-0.10) Absolute Nucleated RBC 0.00 10^3/uL 10^3/uL (0-0.01) Immature Gran % 0.4 % % (0.0-1.1) Immature Gran # 0.03 10^3/uL 10^3/uL (0.00-0.10) POC Sodium Sodium 130 mEq/L L mEq/L (135-145) POC Potassium Potassium 4.0 mEq/L mEq/L (3.5-5.2) POC Chloride Chloride 98 mEq/L mEq/L (97-110) Carbon Dioxide 22 mEq/l mEq/l (22-31) POC Total CO2 Anion Gap 10 mEq/L mEq/L (6-14) POC BUN BUN 15 mg/dL mg/dL (7-23) Creatinine 0.8 mg/dL mg/dL (0.6-1.0) POC Creatinine Estimated GFR > 60 Glucose 118 mg/dL H mg/dL (70-100) POC Glucose Calcium 9.9 mg/dL mg/dL (8.5-10.4) Total Bilirubin 0.8 mg/dL mg/dL (0.1-1.4) Conjugated Bilirubin 0.3 mg/dL mg/dL (0.0-0.5) Unconjugated Bilirubin 0.5 mg/dL mg/dL (0.0-1.1) AST 27 IU/L IU/L (14-46) ALT 34 IU/L IU/L (9-52) Alkaline Phosphatase 88 IU/L IU/L (38-126) Total Protein 7.4 g/dL g/dL (6.3-8.2) Albumin 4.8 g/dL g/dL (3.5-5.0) Lipase 42 IU/L IU/L (23-300) Beta HCG, Qual Urine Color Urine Appearance Urine pH Ur Specific [place] Urine Protein Urine Ketones Urine Blood Urine Nitrate Urine Bilirubin Urine Urobilinogen Ur Leukocyte Esterase Urine RBC Urine WBC Ur Epithelial Cells Urine Glucose Medications Given: Artificial Tears (Natural Balance Tears) 1 drop EACHEYE PRN PRN PRN Reason: Dry Irritated Eyes Stop: 10/10/18 22:49 Last Admin: 04/13/18 23:49 Dose: 1 drop Sodium Chloride (1/2 Ns) 1,000 mls @ 100 mls/hr IV CONT KATHI Stop: 10/10/18 22:14 Last Admin: 04/13/18 23:46 Dose: 1,000 mls Pantoprazole Sodium (Protonix) 40 mg IVP DAILY KATHI Stop: 10/10/18 22:59 Last Admin: 04/14/18 00:12 Dose: 40 mg Discontinued Medications Fentanyl (Sublimaze) 100 mcg IVP EDNOW ONE Stop: 04/13/18 18:44 Last Admin: 04/13/18 19:08 Dose: 100 mcg Fentanyl (Sublimaze) 50 mcg IVP EDNOW ONE Stop: 04/13/18 20:46 Last Admin: 04/13/18 20:55 Dose: 50 mcg Sodium Chloride (Ns) 1,000 mls @ 0 mls/hr IV EDNOW ONE; Wide Open PRN Reason: Protocol Stop: 04/13/18 18:44 Last Admin: 04/13/18 19:07 Dose: 1,000 mls Lorazepam (Ativan Injection) 1 mg IVP ONCE ONE Stop: 04/13/18 22:50 Last Admin: 04/13/18 23:47 Dose: 1 mg Ondansetron HCl (Zofran) 4 mg IVP EDNOW ONE Stop: 04/13/18 18:44 Last Admin: 04/13/18 19:08 Dose: 4 mg Point of Care Test Results: Chemistry 04/13/18 19:13 POC Sodium 134 mEq/L L mEq/L (135-145) POC Potassium 3.8 mEq/L mEq/L (3.3-5.0) POC Chloride 97 mEq/L mEq/L (97-110) POC Total CO2 22 mEq/L mEq/L (22-31) POC BUN 14 mg/dL mg/dL (7-23) POC Creatinine 0.9 mg/dL mg/dL (0.6-1.0) POC Glucose 118 mg/dL H mg/dL (70-100) ISTAT H&H 04/13/18 19:13 POC Hgb 16.3 gm/dL gm/dL (12.6-16.3) POC Hct 48 % H % (38-47) Departure <[place] White - Last Filed: 04/13/18 21:45> <Brittany Barrera - Last Filed: 04/14/18 04:22> - Departure Disposition: [facility] Inpatient Acute Clinical Impression: Abdominal pain Qualifiers: Abdominal location: periumbilical Qualified Code(s): R10.33 - Periumbilical pain Condition: Fair
[2018-04-13] MEDS ORDERED: fentaNYL 100 MCG/2 ML INJ IVP ONE ×2 (18:43→20:45)
[2018-04-13] MEDS ORDERED: NS 1,000 ML IV ONE (18:43)
[2018-04-13] MEDS ORDERED: ONDANSETRON 4 MG/2 ML VIAL IVP ONE (18:43)
[2018-04-13 19:11] LABS: PLATELET COUNT 217 10^3/uL (150-400)
[2018-04-13] MEDS ORDERED: IOHEXOL 300 mgI/ML (OMNIPAQUE) 150 ML BTL IV ONE (19:20)
[2018-04-13] MEDS ORDERED: ONDANSETRON 4 MG/2 ML VIAL IVP PRN (22:13)
[2018-04-13] MEDS ORDERED: LORazepam 0.5 MG TAB PO PRN (22:13)
[2018-04-13] MEDS ORDERED: ONDANSETRON DISINTEGRATING 4 MG TAB PO PRN (22:13)
[2018-04-13] MEDS ORDERED: LORazepam 2 MG/ML INJ IVP ONE (22:49)
[2018-04-13] MEDS ORDERED: fentaNYL 100 MCG/2 ML INJ IVP PRN (22:50)
[2018-04-13] MEDS ORDERED: PROMETHAZINE HCL 25 MG/ML INJ IVP PRN (22:50)
[2018-04-13] MEDS ORDERED: PROMETHAZINE HCL 25 MG TAB PO PRN (22:51)
--- NOTE | 2018-04-13 22:52 | PDGENHP ---
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 Patient reports that she chronically has loose stools but today's bowel movement was slightly abnormal in consistency. No watery diarrhea. Patient took a bus to [place] for a conference. Her symptoms continued to worsen and she left early. On route back she had an episode of nonbloody emesis. Her abdominal pain continued to worsen despite going home and resting. Patient describes pain as right lower quadrant and upper abdomen, cramping and extending from the right upper quadrant to the epigastrium. The lower abdominal pain radiates into her lower back. She has noted distension. Patient reports that she has felt chilled all day intermittently but no fevers. No sweats. History Information - Allergies/Home Medication List Allergies/Adverse Reactions: codeine Allergy (Verified 01/13/18 15:59) nausea oxycodone Allergy (Verified 01/13/18 15:59) nausea tramadol Allergy (Verified 04/13/18 20:52) nausea Home Medications: Herbals/Supplements -Info Only 1 ea [facility] [place] 06/22/17 [Last Taken 01/13/18] Albuterol [Proventil Inhaler HFA (*)] 2 puffs IH DAILY PRN #0 01/13/18 [Last Taken Unknown] Aspirin [Aspirin 81mg (*)] 81 mg PO HS #0 01/13/18 [Last Taken 01/13/18] Fluticasone Nasal [Flonase Nasal [place] (RX)] 1 sprays EACHNARE BID #0 01/13/18 [ Last Taken Unknown] metroNIDAZOLE 1% [Noritate 1%] 1 iman TP BID PRN #0 01/13/18 [Last Taken Unknown] Multivitamins [Multivitamin (*)] 1 each PO DAILY 04/13/18 [Last Taken Unknown] [place]-3 Fatty Acids [Fish Oil 1000 mg (*)] 1,000 mg PO DAILY 04/13/18 [Last Taken Unknown] I have personally reviewed and updated: family history, medical history, social history, surgical history - Past Medical History Additional medical history: Appendix cancer status post appendectomy and subsequent right hemicolectomy, omentectomy and HIPEC. HTN, asthma, factor 5 Leiden with DVT at line site. Diastasis recti. - Surgical History Additional surgical history: Appendectomy found to be malignant with subsequent hemicolectomy, omentectomy, HIPEC 2018. Incisional hernia repair 2018, breast augmentation 2005, left biceps reattachment 2013, left prepatellar bursa removed - Family History Additional family history: Mother-breast cancer age 70, HTN. Father-arrhythmia , HTN. Aunt-clotting disorder - Social History Smoking Status: Never smoked Alcohol Use: Occasionally Drug Use: None Additional social history: Patient is . She works in [employer]. Review of Systems Review of Systems: ROS: 10pt was reviewed & negative except for what was stated in HPI & below Constitutional: Reports: chills. Denies: fever Gastrointestinal: Reports: vomitting, abdominal pain, nausea. Denies: black stools, rectal bleeding Genitourinary: Reports: no symptoms Muscolosketal: Reports: back pain (Radiating from lower abdomen) Skin: Reports: no symptoms. Denies: rash Neurological: Reports: no symptoms Physical Exam Physical Exam: Selected Entries 04/13/18 18:13 Blood Pressure Automatic Method Heart Rate 73 Respiratory 16 Rate O2 Sat (%) 97 Temperature (C) 37.2 C Blood Pressure 161/111 H Mean Arterial 127 H Pressure (MAP) O2 Delivery Room Air Mode Temperature Oral Source Temp Pulse Resp BP Pulse Ox 37.1 C 68 16 181/100 H 95 04/13/18 22:36 04/13/18 22:36 04/13/18 22:36 04/13/18 22:36 04/13/18 22:36 Constitutional: uncomfortable, other (Patient in mild distress due to complaints of abdominal pain. She is curled in bed with her hips flexed cradle in her abdomen. She appears acutely ill but nontoxic.) Eyes: PERRL (Decreased reactivity light bilaterally but symmetric.), anicteric sclera, EOMI (Grossly intact.), No scleral injection Ears, Nose, Mouth, Throat: dry mucous membranes, other (No nasal discharge.), No poor dentition Cardiovascular: regular rate and rhythym, no murmur, rub, or gallop, No edema Peripheral Pulses: 2+: dorsalis-pedis (R), dorsalis-pedis (L) Respiratory: no respiratory distress, no rales or rhonchi, reduced air movement (Decreased inspiratory effort.), No inspiratory crackles, No respiratory distress Gastrointestinal: tenderness (Patient with tenderness to palpation the right upper quadrant down laterally to the right lower quadrant. No rebound or guarding. Patient complains of pain with minimal palpation. Not acute abdomen.) , other (Hypoactive bowel sounds), No guarding, No rebound, No distension Genitourinary: no bladder tenderness, No rodriguez in urethra Skin: warm, other (pallor) Musculoskeletal: full muscle strength (Patient moves all extremities. Strength grossly intact.) Neurologic: AAOx3, sensation intact bilaterally, other (Grossly nonfocal exam.) , No facial droop Psychiatric: interacting appropriately, thought process linear, anxious, flat affect, other (Patient appears quite uncomfortable. Is cooperative.) Lab Data & Imaging Review 04/13/18 19:00 04/13/18 19: WBC 7.11 10^3/uL (3.80-9.50) 04/13/18 19: RBC 4.89 10^6/uL (4.18-5.33) 04/13/18 19: Hgb 15.9 g/dL (12.6-16.3) 04/13/18 19: POC Hgb 16.3 gm/dL (12.6-16.3) 04/13/18 19:13 Hct 44.2 % (38.0-47.0) 04/13/18 19: POC Hct 48 % (38-47) H 04/13/18 19:13 MCV 90.4 fL (81.5-99.8) 04/13/18 19: MCH 32.5 pg (27.9-34.1) 04/13/18 19: MCHC 36.0 g/dL (32.4-36.7) 04/13/18 19: RDW 11.9 % (11.5-15.2) 04/13/18 19: Plt Count 217 10^3/uL (150-400) 04/13/18 19: MPV 8.0 fL (8.7-11.7) L 04/13/18 19:00 Neut % (Auto) 86.6 % (39.3-74.2) H 04/13/18 19:00 Lymph % (Auto) 9.6 % (15.0-45.0) L 04/13/18 19:00 [place] % (Auto) 3.1 % (4.5-13.0) L 04/13/18 19:00 Eos % (Auto) 0.0 % (0.6-7.6) L 04/13/18 19:00 Baso % (Auto) 0.3 % (0.3-1.7) 04/13/18 19:00 Nucleat RBC Rel Count 0.0 % (0.0-0.2) 04/13/18 19: Absolute Neuts (auto) 6.16 10^3/uL (1.70-6.50) 04/13/18 19:00 Absolute Lymphs (auto) 0.68 10^3/uL (1.00-3.00) L 04/13/18 19:00 Absolute Monos (auto) 0.22 10^3/uL (0.30-0.80) L 04/13/18 19:00 Absolute Eos (auto) 0.00 10^3/uL (0.03-0.40) L 04/13/18 19:00 Absolute Basos (auto) 0.02 10^3/uL (0.02-0.10) 04/13/18 19:00 Absolute Nucleated RBC 0.00 10^3/uL (0-0.01) 04/13/18 19:00 Immature Gran % 0.4 % (0.0-1.1) 04/13/18 19:00 Immature Gran # 0.03 10^3/uL (0.00-0.10) 04/13/18 19:00 POC Sodium 134 mEq/L (135-145) L 04/13/18 19:13 Sodium 130 mEq/L (135-145) L 04/13/18 19:00 POC Potassium 3.8 mEq/L (3.3-5.0) 04/13/18 19:13 Potassium 4.0 mEq/L (3.5-5.2) 04/13/18 19: POC Chloride 97 mEq/L (97-110) 04/13/18 19:13 Chloride 98 mEq/L (97-110) 04/13/18 19:00 Carbon Dioxide 22 mEq/l (22-31) 04/13/18 19:00 POC Total CO2 22 mEq/L (22-31) 04/13/18 19:13 Anion Gap 10 mEq/L (6-14) 04/13/18 19:00 POC BUN 14 mg/dL (7-23) 04/13/18 19:13 BUN 15 mg/dL (7-23) 04/13/18 19:00 Creatinine 0.8 mg/dL (0.6-1.0) 04/13/18 19:00 POC Creatinine 0.9 mg/dL (0.6-1.0) 04/13/18 19:13 Estimated GFR > 60 04/13/18 19:00 Glucose 118 mg/dL (70-100) H 04/13/18 19:00 POC Glucose 118 mg/dL (70-100) H 04/13/18 19:13 Calcium 9.9 mg/dL (8.5-10.4) 04/13/18 19:00 Total Bilirubin 0.8 mg/dL (0.1-1.4) 04/13/18 19:00 Conjugated Bilirubin 0.3 mg/dL (0.0-0.5) 04/13/18 19:00 Unconjugated Bilirubin 0.5 mg/dL (0.0-1.1) 04/13/18 19:00 AST 27 IU/L (14-46) 04/13/18 19:00 ALT 34 IU/L (9-52) 04/13/18 19:00 Alkaline Phosphatase 88 IU/L (38-126) 04/13/18 19:00 Total Protein 7.4 g/dL (6.3-8.2) 04/13/18 19:00 Albumin 4.8 g/dL (3.5-5.0) 04/13/18 19: Lipase 42 IU/L (23-300) 04/13/18 19:00 Beta HCG, Qual NEGATIVE 04/13/18 19:00 Urine Color PALE YELLOW 04/13/18 19:55 Urine Appearance CLEAR 04/13/18 19:55 Urine pH 7.0 (5.0-7.5) 04/13/18 19:55 Ur Specific [place] 1.025 (1.002-1.030) 04/13/18 19:55 Urine Protein NEGATIVE (NEGATIVE) 04/13/18 19:55 Urine Ketones TRACE (NEGATIVE) H 04/13/18 19:55 Urine Blood NEGATIVE (NEGATIVE) 04/13/18 19:55 Urine Nitrate NEGATIVE (NEGATIVE) 04/13/18 19:55 Urine Bilirubin NEGATIVE (NEGATIVE) 04/13/18 19:55 Urine Urobilinogen NEGATIVE EU (0.2-1.0) 04/13/18 19:55 Ur Leukocyte Esterase NEGATIVE (NEGATIVE) 04/13/18 19:55 Urine RBC 1-3 /hpf (0-3) 04/13/18 19:55 Urine WBC 1-3 /hpf (0-3) 04/13/18 19:55 Ur Epithelial Cells TRACE /lpf (NONE-1+) 04/13/18 19:55 Urine Glucose NEGATIVE (NEGATIVE) 04/13/18 19:55 Imaging Review: Contrast Enhanced CT Scan of the Abdomen and Pelvis Clinical History: 57-year-old female with a history of appendiceal cancer, status post appendectomy and partial colectomy, presenting to the ED complaining of abdominal pain with nausea and vomiting. Technique: Oral contrast was not administered. Following the uncomplicated intravenous administration of 90 mL of Omnipaque 300, a multidetector helical CT scan was obtained from the lung bases inferiorly through the proximal femora, with images reformatted at 5.00 and 1.50 mm increments, and reviewed at a variety of window and level settings. Parasagittal and paracoronal reconstructed images are reviewed on the workstation. The DFOV is 40.4. Dose reduction techniques were utilized. Comparison Study:CT scan of the abdomen and pelvis, dated 10/30/2017 and 2017.. Findings: Lung Bases: Clear, with no pulmonary nodule, infiltrate, atelectasis, or pleural effusion. The visualized cardiac chambers and pericardium are unremarkable. Liver: There is an elongate Felicitas's right hepatic lobe, measuring 19.5 cm in cephalocaudal diameter. On axial series 4, image 149, there is subtle diminished attenuation, however reassuringly unchanged from the previous studies. Bile Ducts: Normal. Gallbladder: There are no calcified gallstones or wall thickening. The gallbladder is moderately distended. There is trace free fluid along the caudal margin of the gallbladder near the anteromedial aspect of the Morison's pouch, and also trace fluid near the caudal right hepatic tip ( also present on the previous CT scan). Pancreas: Normal. Spleen: Normal. Adrenal Glands: Normal. Kidneys/Ureters/Urinary Bladder: The kidneys are normal in size, shape, and position. There is no nephrolithiasis, obstructive uropathy, or perinephric stranding. The ureters are not dilated. The urinary bladder is distended, with no asymmetric wall thickening or dependent calcification. GI Tract: There is mural thickening involving the stomach, particularly pronounced along the body and antrum, and more pronounced than on the previous study. These findings are noted on axial series 4, images 72-114, for example. The duodenum, jejunum, and proximal to mid ileum appear normal the appendix is surgically absent and the patient has had a partial right hemicolectomy. There are anastomotic clips on the right side with no focal abnormality observed. There is more pronounced "laxity" of the linea alba in the periumbilical region, with some bulging of the adjacent loops of small bowel but no evidence of incarceration or obstruction. Retroperitoneum: There is no adenopathy along the aortoiliac vascular tree. Mesentery/Omentum/Peritoneum: There is no free air or localized fluid collection.] There is no mesenteric adenopathy, omental caking, or peritoneal nodule identified. Vessels: The abdominal aorta is normal in size, and tapers normally. The IVC is normal in caliber. The splenic vein, superior mesenteric vein, and the main portal vein are patent. Reproductive Organs: The uterus is anteverted and slightly anteflexed. Since the prior study, the IUD has been removed. There is no adnexal mass. Abdominal Wall: There is an infraumbilical incisional scar. Osseous Structures: Age-appropriate, with no aggressive osseous lesion, compression deformity, or pars defect. Impression: 1. Gastric submucosal thickening, more pronounced than on the previous study. As clinically directed , endoscopy could be considered for additional assessment. 2. Status post appendectomy and partial right colectomy. 3. Trace fluid in the right upper quadrant of the abdomen (this was also present on the 10/22 study). Findings were discussed with BRITTANY BARRERA MD at 20:30, on 04/13/2018. Dictated By: Jovani Loco MD Visualized and Interpreted imaging results: Yes Assessment & Plan Assessment: Pleasant 57-year-old female with past medical history significant for appendiceal cancer status post appendectomy and subsequent hemicolectomy with omentectomy in 2018 status post HIPEC followed by chemotherapy, HTN, asthma, factor 5 Leiden deficiency with history DVT who presents emergency department today with complaints of approximately 12 hours of abdominal pain and distension. #Abdominal pain (Acute) - CT abdomen pelvis notes gastric submucosal thickening more prominent than previous study as well as trace fluid in the right upper quadrant that is also present 818. Suspect viral gastroenteritis in setting of patient's acute onset of symptoms. She denies any known sick contacts. She does have the gastric mucosa sub mucosal thickening. If patient's symptoms rapidly resolved as suspected viral gastroenteritis inpatient should consider GI follow-up on outpatient basis otherwise will re-evaluate in the morning need for inpatient GI consult. There is no evidence of obstruction, volvulus, perforation on CT. Patient reports fentanyl did help temporarily. She is concerned however that she might become overly sedated or confused with opiates. She is amenable to a trial of Ativan and this should also assist with cramping type pain and advised may help with her nausea as well. #nausea/vomiting - continue with antiemetic therapy. #Hyponatremia - likely secondary to hypovolemia. IV fluids overnight until patient's nausea vomiting are under control. Chronic medical issues #Benign essential HTN - patient's blood pressures notably elevated but suspect this is likely related to acute pain. Will focus on pain management and reassess need for a p.r.n. Antihypertensive if appropriate. #Asthma - without exacerbate patient's. Albuterol p.r.n. #Factor 5 Leiden - no report of GI bleeding. Consider anticoagulation PPX if patient should stay additional day. #History of appendiceal cancer - in remission FEN - IV fluids overnight. Encourage oral intake as tolerated. Advance diet when patient able to tolerate clears. Electrolytes adequate did not require placement except for hyponatremia as noted above. PPX-SCDs. Consider anticoagulation if patient she should stay additional day. Cor status-full Disposition-patient admitted observation status on the [facility] floor for continued IV fluid hydration, abdominal pain control and IV antiemetics.
[2018-04-13] MEDS: 1/2 NS 1,000 ML IV SCH (23:46)
[2018-04-13] MEDS: TEARS/DEXTRAN 70/HYPROMELLOSE 15 ML OPHT.BTL EACHEYE PRN (23:49)
[2018-04-14] MEDS: PANTOPRAZOLE SODIUM 40 MG VIAL IVP SCH ×2 (00:12→08:41)
[2018-04-14] MEDS ORDERED: ALBUTEROL 60 PUFFS/8 GM MDI IH PRN (08:33)
[2018-04-14] MEDS ORDERED: METRONIDAZOLE 1% TP PRN (08:33)
[2018-04-14] MEDS: TEARS/DEXTRAN 70/HYPROMELLOSE 15 ML OPHT.BTL EACHEYE PRN (08:46)
[2018-04-14] MEDS: OMEGA-3 FATTY ACIDS 1,000 MG CAP PO SCH (08:48)
[2018-04-14] MEDS: MULTIVITAMINS 1 EACH TAB PO SCH (08:48)
[2018-04-14] MEDS ORDERED: Herbals/Supplements -Info Only PO SCH (09:00)
[2018-04-14] MEDS: FLUTICASONE NASAL 120 SPRAYS/16 GM MDI EACHNARE SCH ×2 (09:22→20:09)
[2018-04-14] MEDS: ACETAMINOPHEN 325 MG TAB PO PRN (10:50)
--- NOTE | 2018-04-14 14:32 | HOSPPROG ---
Hospitalist Progress Note Assessment/Plan: 57-year-old female with past medical history significant for appendiceal cancer status post appendectomy and subsequent hemicolectomy with omentectomy in 2018 status post HIPEC followed by chemotherapy, HTN, asthma, factor 5 Leiden deficiency with history DVT. 12 hours of abdominal pain and distension. First encounter, chart reviewed. D/W Dr Benedict and Dr Taylor. #Abdominal pain (Acute) - CT abdomen pelvis notes gastric submucosal thickening more prominent than previous study as well as trace fluid in the right upper quadrant. - acute onset of symptoms - She denies any known sick contacts - She does have the gastric mucosa sub mucosal thickening - There is no evidence of obstruction, volvulus, perforation on CT - D/W Dr Benedict, she knows pt and will consult #nausea/vomiting - continue with antiemetic therapy. #Hyponatremia - likely secondary to hypovolemia - stable #Benign essential HTN - patient's blood pressures notably elevated -will follow - focus on pain management and reassess need for a p.r.n. Antihypertensive #Asthma - without exacerbate patient's. Albuterol p.r.n. #Factor 5 Leiden - no report of GI bleeding. Consider anticoagulation PPX if patient should stay additional day. #History of appendiceal cancer - in remission #FEN - Encourage oral intake as tolerated. - Advance diet #PPX-SCDs. Cor status-full #Disposition -change to inpt status -needs further evaluation of abd pain. Subjective: C/O abd pain with nausea. No diarrhea. Objective: Vital Signs Temp Pulse Resp BP Pulse Ox 36.4 C 73 16 149/97 H 97 04/14/18 08:18 04/14/18 10:59 04/14/18 10:59 04/14/18 10:59 04/14/18 10:59 Laboratory Results 04/14/18 04:43 04/13/18 04/14/18 04/15/18 05:59 05:59 05:59 Intake Total 1578 Output Total 550 700 Balance 1028 -700 - Physical Exam Constitutional: appears nourished, uncomfortable, No obese Eyes: PERRL, anicteric sclera, EOMI Ears, Nose, Mouth, Throat: moist mucous membranes, hearing normal, ears appear normal Cardiovascular: No JVD, No tachycardia, No edema Respiratory: no respiratory distress, no rales or rhonchi, reduced air movement Gastrointestinal: tenderness, distension, No ascites Skin: warm, normal color, No mottled Musculoskeletal: normal joint ROM, no joint effusions, generalized weakness Neurologic: AAOx3 Psychiatric: not anxious, not encephalopathic, thought process linear ICD10 Worksheet Patient Problems: Problems Problem Status Onset Acute appendicitis Acute Urinary tract infection Acute Abdominal pain Acute
--- NOTE | 2018-04-14 14:51 | SOAPPROG ---
CHATO Progress Note Assessment/Plan: Assessment: Full dictation to follow. In brief, justin Ochoa is a 57-year-old woman who had appendiceal cancer. She is status post right hemicolectomy. She developed a ventral hernia. I took her to the operating room for umbilical hernia repair and primary approximation of her diastasis. She continued to have a bulge midline. No evidence of hernia. She presented with abrupt onset of nausea vomiting distension and pain. She is overall improved from admission but did have discomfort and small emesis after apple juice On physical exam she is distended and soft. No evidence of ventral hernia. I personally reviewed her CT scan. There is no signs of hernia or obstruction. She does have thickening by her stomach. Consider GI evaluation. Continue to follow Plan: 04/14/18 14:49 Objective: Vital Signs Temp Pulse Resp BP Pulse Ox 36.4 C 73 16 149/97 H 97 04/14/18 08:18 04/14/18 10:59 04/14/18 10:59 04/14/18 10:59 04/14/18 10:59 Laboratory Results 04/14/18 04:43 04/13/18 04/14/18 04/15/18 05:59 05:59 05:59 Intake Total 1578 Output Total 550 700 Balance 1028 -700 ICD10 Worksheet Patient Problems: Problems Problem Status Onset Abdominal pain Acute Acute appendicitis Acute Urinary tract infection Acute
--- NOTE | 2018-04-14 15:03 | PDMN ---
Medical Necessity Medical necessity: MCG M05 abd pain undg: pt. still with abd pain- N., req IVF , IV antiemetic's, IV protonix, status changed to INPT 04/14 for ongoing med nec - further monitoring and eval of above > [address] shows gastric submucosal thickening more prominent than previous study as well as trace fluid in RUQ.
--- NOTE | 2018-04-14 15:21 | GCON ---
[f rep st] CONSULTATION DATE OF CONSULTATION: 04/14/2018 CHIEF COMPLAINT: Abdominal pain. HISTORY OF PRESENT ILLNESS: The patient is a 57-year-old woman who is well known to me. She was arnold gnosed with appendiceal carcinoma in June 2017. She underwent laparoscopic-assisted right hemicolec evi in July 2017 at an outside facility. In late December, she noticed her umbilicus went from an inn ie to an outie. She also had diastasis. I took her to the operating room January 20, 2018, for a D a Hua umbilical hernia repair. I saw her several times postoperatively. Most recently, she has cisneros d increasing diastasis. I personally reviewed her images and shoots from March 2018 and spoke with the radiologist. There was no evidence of recurrent hernia but thinning of the abdominal wall. Yesterday, she was riding the bus to [place], and she had a yogurt and granola on the bus. She noted that she felt a bit queasy. She attended some classes, but then her discomfort escalated. She had s everal episodes of emesis. She decided to take the bus home and had another emesis in the bus. Her pain continued to escalate, and so she presented to the emergency room. She had a CT scan performed of her abdomen which showed no obvious hernia. There is mural thickening involving the stomach. The re is bulging of adjacent loops of small bowel, but no incarceration or obstruction. She was feeling better overnight. She had water and apple juice this morning and then had another small emesis. Mitali lane denies sick contacts. She was passing gas yesterday. She does not feel like she is passing gas to day. PAST MEDICAL HISTORY: Asthma, SVT, factor V Leiden, hypertension, appendiceal cancer. PAST SURGICAL HISTORY: Appendectomy, right hemicolectomy, ventral hernia repair, biceps tendon, richy st augmentation, removed left prepatellar bursa. ALLERGIES: Codeine, oxycodone. FAMILY HISTORY: Significant for hypertension, heart arrhythmia, breast cancer, and clotting disorder s. ALCOHOL: She does drink alcohol. SOCIAL HISTORY: She does exercise. She works in [employer]. She has never used tobacco. PHYSICAL EXAM: Usually has loose bowel movements, but yesterday had a firm bowel movement. PHYSICAL EXAMINATION: VITAL SIGNS: 36.4, 74, 161/94, 18, 96% room air. GENERAL: A pleasant, well- nourished, well-groomed woman sitting up in bed. HEENT: Normocephalic. No gross hearing deficits. Mucous membranes moist. Pupils equal and round. No scleral icterus. LUNGS: Clear to auscultation bilaterally. No increased work of breathing. CARDIAC: Regular rate. No peripheral edema. ABDOME N: She is much more distended than her usual scaphoid abdomen. Bowel sounds are present. She is so ft. No hernias palpated. Incisions clean, dry, and intact. MUSCULOSKELETAL: Normal nails. PSYCH: Mood and affect normal. SKIN: Warm and dry. NEURO: Grossly intact. RESULTS REVIEWED: I personally reviewed the CT scan and agree with the findings of a thickened antru m and no obvious hernia. IMPRESSION/PLAN: The patient is a 57-year-old woman who has rectus diastasis. For this, she is wan g to seek a second opinion with Dr. José Miguel Lopez in [place]. We will forward her disk down to him. This is scheduled in May. We had also discussed mesh repair of her abdomen. Her current pain, ángel sea and vomiting could represent a gastrointestinal virus. She also may need a scope. I recommend t [facility] be consulted. We will continue to follow. /[id number]/MODL
--- NOTE | 2018-04-14 15:55 | SOAPPROG ---
SOAP Progress Note Assessment/Plan: Assessment:Plan: see full dictated consult to follow 57 y/o female with hx appy cancer with mets s/p hemicolectomy and chemo with sudden onset abdo pain yesterday CT with possible increased thickening of gastric wall vs under distension plan for EGD in am with Dr. Tang Andrews MD [phone] 04/14/18 15:52 Objective: Vital Signs Temp Pulse Resp BP Pulse Ox 37.0 C 79 16 162/99 H 95 04/14/18 15:11 04/14/18 15:11 04/14/18 10:59 04/14/18 15:11 04/14/18 15:11 ICD10 Worksheet Patient Problems: Problems Problem Status Onset Abdominal pain Acute Acute appendicitis Acute Urinary tract infection Acute
--- NOTE | 2018-04-14 16:33 | ASMTCMCOM ---
CM Note CM Note Notes: 04/14/2018 Case Management Note Reviewed chart. Pt admitted for abdominal pain with h/o appy cancer with mets s/p hemicolectomy and chome. Plan for EGD in am per Dr. Andrews's note. There are no therapy evals ordered at this time. Discharge needs are unclear at this time. Case Management d/c poc: to be determined. Case Management to follow. Date Signed: 04/14/2018 04:33 PM Electronically Signed By:Meseret Garrett RN
[2018-04-14] MEDS: 1/2 NS 1,000 ML IV SCH (17:04)
[2018-04-14] MEDS: ASPIRIN 81 MG CHEWABLE TAB PO SCH (20:09)
[2018-04-15] MEDS ORDERED: ACETAMINOPHEN 650 MG SUPP PR PRN (00:03)
[2018-04-15] MEDS: MULTIVITAMINS 1 EACH TAB PO SCH (08:59)
[2018-04-15] MEDS: OMEGA-3 FATTY ACIDS 1,000 MG CAP PO SCH (08:59)
[2018-04-15] MEDS: PANTOPRAZOLE SODIUM 40 MG VIAL IVP SCH (09:23)
[2018-04-15] MEDS: FLUTICASONE NASAL 120 SPRAYS/16 GM MDI EACHNARE SCH ×2 (09:23→19:56)
--- NOTE | 2018-04-15 12:03 | GCON ---
[f rep st] CONSULTATION DATE OF CONSULTATION: 04/15/2018 REQUESTING PHYSICIAN: Joanne Briones This is for epigastric pain. Dear Joanne Briones: Thank you very kindly for asking me to evaluate the patient in consultation for a chief complaint of epigastric pain. She was admitted on April 13 because of the abrupt onset of epigastric pain fol lowed by nausea and vomiting. This started on . She was riding the bus down to [place] in he r usual state of health when she developed real severe crampy epigastric and periumbilical pain. The pain escalated to a 9/10 in severity. She tried to attend classes down in [place] and perform her wo rk normally but because of the pain could not. She felt nauseated and took the bus back to [place] a nd vomited on the way home. The vomiting was somewhat green and bilious in nature. She did not feel any better after the vomiting and this continued. She came to the emergency room for further evalua tion. A CT scan of the abdomen and pelvis was performed which showed some gastric wall thickening bu t was otherwise relatively unremarkable. She has felt somewhat better since admission, but continues to have significant epigastric pain with eating. She still feels nauseated when this happens. She denies any hematemesis, melena, or hematochezia. Her bowel movements have been unchanged. She denie s any fever. I am asked to assist with further evaluation and management. 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 PAST SURGICAL HISTORY: Appendectomy, hemicolectomy on the right, omentectomy, Port-A-Cath insertion, incisional hernia repair, breast augmentation, biceps reattachment, patellar bursa removal. FAMILY HISTORY: Breast cancer in her mom. Father has had an arrhythmia. There is a history of fact or V Leiden deficiency. SOCIAL HISTORY: No tobacco, no alcohol. The patient is . 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 MEDICATIONS: On admission include, metronidazole 1% topical b.i.d., multivitamin, omega-3 fatty acid s, fluticasone nasal spray, aspirin, albuterol. ALLERGIES: Codeine, oxycodone, and tramadol. REVIEW OF SYSTEMS: CONSTITUTIONAL: Reports some chills but no overt fever. Reports anorexia. HEEN T: No headache. No sore throat. No rhinorrhea. No visual disturbances. PULMONARY: No cough or s hortness of breath. CARDIOVASCULAR: No chest pain or palpitations. GI: As per the HPI and otherwi se negative. RHEUMATOLOGIC: No joint pain, deformity, or swelling. DERMATOLOGIC: No rash or jaund ice. NEURO: No focal motor deficits, paresthesias, falls, or seizure. GENITOURINARY: No dysuria o r hematuria. No flank pain. She reports having a recent urinalysis at her PCP that was negative. E NDOCRINE: No heat or cold intolerance. HEMATOLOGIC: No epistaxis or bruising. She has a history o f a clot in her extremity from a catheter insertion but no active clotting problems. No epistaxis. No bruising. PSYCHIATRIC: Some anxiety over eating because it is causing pain. PHYSICAL EXAM: VITAL SIGNS: Blood pressure 145/100, heart rate is 88, oxygen saturation is 94% on r oom air, temperature is 37, respiratory rate is 16. GENERAL: Anxious female in no acute distress. HEENT: Normocephalic, atraumatic. Oropharynx clear. NECK: Supple. No scleral icterus. No thyrom egaly. LUNGS: Clear to auscultation bilaterally. CARDIOVASCULAR: Regular rate and rhythm without murmur, rub, or gallop. GI: Abdomen is nondistended and soft. There is a rectus diastasis deformit y. There is no palpable mass or lesion. There is no rebound or guarding. Bowel sounds are normal. Previous surgical scars are well healed. The abdomen is supple. Bowel sounds are normal. MUSCULOS KELETAL: Normal gait and station. No joint deformity, swelling, or warmth. DERMATOLOGIC: No rash or jaundice. GENITOURINARY: No CVA tenderness. NEUROLOGIC: Alert to person, place, and time. Anx ious appearing. Nonfocal motor exam. LABORATORY DATA: Database includes the following: White blood count 7.1, hematocrit 44.2, platelets are 217. Sodium 132, potassium 4.1, chloride 102, bicarbonate 21, BUN 11, creatinine 0.8, glucose 1 16, calcium 9.1, magnesium 1.9. Beta HCG is negative. Lipase is 42. LFTs are normal. IMAGING: Includes a CT scan of the abdomen and pelvis performed on April 13, 2008. This shows fin dings of a right hemicolectomy without acute bowel abnormalities. The stomach does have some mural t hickening, mostly in the body and antrum, that seems to be present on a previous CT compared from Oct us2017, but it seems perhaps a little more thickened. The rest of the bowel is normal. There is an anastomosis in the right colon. The mesentery is without abnormality. The vasculature of the bowel is normal. IMPRESSION: 1. Epigastric pain. 2. Nausea with vomiting. 3. Gastric wall thickening. RECOMMENDATIONS: 1. N.p.o. 2. IV PPI b.i.d. 3. Upper endoscopy to evaluate her abnormal CT scan showing gastric wall thickening in the setting o f her current symptoms. 4. Further recommendations to follow. /[id number]/MODL
--- NOTE | 2018-04-15 13:03 | GCON ---
[f rep st] CONSULTATION DATE OF CONSULTATION: 04/14/2018 REFERRING PHYSICIAN: Joanne Briones NP INDICATION FOR CONSULTATION: Abnormal CAT scan, abdominal pain. HPI: I have been asked by Joanne Briones to see the patient in consultation for chief complaints of abdominal pain, abnormal CAT scan. The patient is a pleasant 57-year-old female who has a past medical history significant for an appendiceal cancer, which was noted in June 2017, when she presented for an appendectomy. 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 She subsequently was taken care of down at the [facility] where she underwent a right hemicolectomy, as well as chemotherapy. She also has a history of hypertension, asthma, and factor V Leiden deficiency. She presents to the emergency room after approximately 12 hours of abdominal pain. She states that it started when she was taking a bus down to [place]. Was worsened with p.o. intake. Progressed throughout the morning such that she took a bus back from [place] for evaluation. She has had a CT scan that I have reviewed with the radiologist, that revealed probable thickening of the stomach pronounced more along the body and the antrum, although some under distention is possible. She has continued to have epigastric pain with p.o. intake, and on my exam, she also has some right lower quadrant discomfort. She has been feeling fine prior to this episode of pain. She had previously denied any nausea, vomiting, dysphagia, odynophagia, early satiety, and bowel habits have been normal. She is now admitted for the above, and I am called to help evaluate and treat in that regard. PAST MEDICAL HISTORY: The appendiceal cancer, as noted above, status post right hemicolectomy, omentectomy, and HIPEC; history of factor V Leiden deficiency with a DVT at an intravenous line site; hypertension; and asthma. PAST SURGICAL HISTORY: The urgent appendectomy in June 2017, with subsequent right hemicolectomy, omentectomy, and HIPEC. She has also had an incisional hernia repair by Dr. Benedict in January 2018, breast augmentation back in 2005, left prepatellar bursa removed, and left biceps reattachment. FAMILY HISTORY: Significant for Mother with breast cancer and hypertension; Father with hypertension; an aunt with some type of clotting disorder. Her mother also had breast cancer and melanoma, and a maternal grandmother had uterine cancer. MEDICATIONS AT HOME: Included omega-3 fatty acids, multivitamin, herbal supplements, albuterol inhaler p.r.n., aspirin 81 mg, Flonase p.r.n., metronidazole cream. In the hospital, she had been written for Tylenol p.r.n., Proventil inhaler p.r.n., aspirin 81 mg q.h.s., , fluticasone 1 spray b.i.d. p.r.n., Ativan p.r.n., multivitamin, fish oil, Zofran p.r.n., Protonix 40 mg IV daily. ALLERGIES: She has reactions to codeine, oxycodone, and tramadol, all with nausea and GI upset. SOCIAL HISTORY: She was never a smoker. She drinks alcohol occasionally. She is . Her is in the room. REVIEW OF SYSTEMS: A complete review of systems was performed and is negative other than as noted in the HPI. PHYSICAL EXAM: GENERAL: Well-developed, well-nourished female sitting in bed, in no acute distress. VITAL SIGNS: Blood pressure 162/99, pulse 79, respirations 17, 95% on room air, temperature 37.0. Eyes: Anicteric. LASHAY. EOMI. Mouth: No lesions. Moist membranes. NECK: Supple. Full range of motion. No JVD. BACK: No spine tenderness. No CVA tenderness. LUNGS: Clear to auscultation. HEART: S1, S2. Regular rate and rhythm. No rubs or gallops appreciated. ABDOMEN: Bowel sounds are present. She has epigastric, as well as right lower quadrant tenderness. She has some mild guarding. She has no rebound, no hepatosplenomegaly. EXTREMITIES: No cyanosis, clubbing, edema. NEUROLOGIC: Cranial nerves intact. Nonfocal. SKIN: No stigmata of liver disease. No rashes. LABORATORY DATA: From April 13, WBC 7.11, hemoglobin 15.9, hematocrit 44.2 , platelet count 217. From April 14, sodium 132, potassium 4.1, chloride 102, bicarb 21, BUN 11, creatinine 0.8, glucose 116, calcium 9.1, magnesium 1.1. From April 13, AST 27, ALT 34, alkaline phosphatase 88, albumin 4.8, total protein 7.3. Beta hCG negative. From January 30, 2018, CEA antigen 0.52. X-RAYS: Abdominal CAT scan performed on April 13, 2018: Mural thickening involving the stomach, particularly pronounced along the body and the antrum and more pronounced than the previous study (my note, I reviewed this with the radiologist, and there is some under distention, so it is not clear if this is truly more pronounced than the previous study or not), status post right hemicolectomy with anastomotic clips on the right side. No focal abnormality observed. Gallbladder is moderately distended. No calcified stones or wall thickening. Pancreas appears normal. Spleen appears normal. PATHOLOGY: From this appendectomy from June 23, 2017, was mixed goblet cell carcinoid adenocarcinoma. ASSESSMENT: 1. Abdominal pain. 2. Abnormal imaging study. 3. History of goblet cell carcinoid adenocarcinoma. RECOMMENDATIONS: 1. EGD for evaluation of gastric abnormality, abdominal pain. 2. Further recommendations to follow results of EGD. 3. Continue Protonix. Thank you for allowing me to participate in this patient's healthcare. Do not hesitate to call me if any questions. /[id number]/MODL MTDD
[2018-04-15] MEDS ORDERED: PROPOFOL 200 MG/20 ML VIAL ONE (13:14)
--- NOTE | 2018-04-15 13:17 | PDANEPAE ---
ANE History of Present Illness EGD. ANE Past Medical History - Cardiovascular History Hx Hypertension: Yes Hx Arrhythmias: No Hx Chest Pain: No Hx Coronary Artery / Peripheral Vascular Disease: No Hx CHF / Valvular Disease: No Hx Palpitations: No Cardiovascular History Comment: current blood clot in left upper arm- no blood pressures or iv please - Pulmonary History Hx COPD: No Hx Asthma/Reactive Airway Disease: Yes Hx Recent Upper Respiratory Infection: No Hx Oxygen in Use at Home: No Hx Sleep Apnea: No Sleep Apnea Screening Result - Last Documented: Negative Pulmonary History Comment: occ asthma- instructed pt to bring inhaler - Neurologic History Hx Cerebrovascular Accident: No Hx Seizures: No Hx Dementia: No - Endocrine History Hx Diabetes: No Hypothyroid: No Hyperthyroid: No Obesity: no - Renal History Hx Renal Disorders: No - Liver History Hx Hepatic Disorders: No - Cancer History Hx Cancer: Yes Cancer History Comment: appendix ca with surgery and chemo 09/2017- 12/2017 - Congenital Disorder History Hx Congenital Disorders: No - GI History GERD: no Hx Gastrointestinal Disorders: Yes Gastrointestinal History Comment: hx of hemicolectomy - Other Health History Other Health History: factor 5 deficiency - Chronic Pain History Chronic Pain: No - Surgical History Prior Surgeries: 07/22/17 right hemicolectomy and omentum. 06/22/[address] Rivera. 2013 removal of free patella- left. 2006 breast augmentation. 2014 repair of torn bicep- left ANE Review of Systems Review of Systems: - Exercise capacity METS (RN): 4 METS ANE Patient History - Allergies Allergies/Adverse Reactions: codeine Allergy (Verified 01/13/18 15:59) nausea oxycodone Allergy (Verified 01/13/18 15:59) nausea tramadol Allergy (Verified 04/13/18 20:52) nausea - Home Medications Home Medications: RX: Herbals/Supplements -Info Only 1 ea MISC AD 06/22/17 [Last Taken 01/13/18] Albuterol [Proventil Inhaler HFA (*)] 2 puffs IH DAILY PRN #0 01/13/18 [Last Taken Unknown] Aspirin [Aspirin 81mg (*)] 81 mg PO HS #0 01/13/18 [Last Taken 01/13/18] Fluticasone Nasal [Flonase Nasal New Site (RX)] 1 sprays EACHNARE BID #0 01/13/18 [ Last Taken Unknown] metroNIDAZOLE 1% [Noritate 1%] 1 iman TP BID PRN #0 01/13/18 [Last Taken Unknown] Multivitamins [Multivitamin (*)] 1 each PO DAILY 04/13/18 [Last Taken Unknown] [place]-3 Fatty Acids [Fish Oil 1000 mg (*)] 1,000 mg PO DAILY 04/13/18 [Last Taken Unknown] - NPO status NPO Since - Liquids (Date): 04/15/18 NPO Since - Liquids (Time): 00:00 NPO Since - Solids (Date): 04/15/18 NPO Since - Solids (Time): 00:00 - Anes Hx Anes Hx: no prior problems - Smoking Hx Smoking Status: Never smoked Marijuana use: No - Alcohol Use Alcohol Use: Other (2 drinks/night) - Family Anes Hx Family Hx Anesthesia Complications: none ANE Labs/Vital Signs - Labs Result Diagrams: 04/13/18 19:00 04/14/18 04:43 - Vital Signs Blood Pressure: 154/86 Heart Rate: 72 Respiratory Rate: 16 O2 Sat (%): 94 Height: 167.64 cm Weight: 55.792 kg ANE Physical Exam - Airway Neck exam: FROM Mallampati Score: Class 2 Mouth exam: normal dental/mouth exam - Pulmonary Pulmonary: clear to auscultation - Cardiovascular Cardiovascular: regular rate and rhythym - ASA Status ASA Status: II ANE Anesthesia Plan Anesthesia Plan: GA with mask Total IV Anesthesia: Yes
[2018-04-15] MEDS ORDERED: MIDAZOLAM 2 MG/2 ML VIAL IVP ONE (13:20)
[2018-04-15] MEDS ORDERED: MIDAZOLAM 2 MG/2 ML VIAL ONE (13:22)
--- NOTE | 2018-04-15 13:22 | HOSPPROG ---
Hospitalist Progress Note Assessment/Plan: 57-year-old female with past medical history significant for appendiceal cancer status post appendectomy and subsequent hemicolectomy with omentectomy in 2018 status post HIPEC followed by chemotherapy, HTN, asthma, factor 5 Leiden deficiency with history DVT. 12 hours of abdominal pain and distension. #Abdominal pain (Acute) - CT abdomen pelvis notes gastric submucosal thickening more prominent than previous study as well as trace fluid in the right upper quadrant. - acute onset of symptoms - She denies any known sick contacts - She does have the gastric mucosa sub mucosal thickening - There is no evidence of obstruction, volvulus, perforation on CT - Likely viral, getting better #Gastric thickening - D/W Dr Beckwith - EGD today for evaluation #nausea/vomiting - continue with antiemetic therapy. - improved #Hyponatremia - likely secondary to hypovolemia - stable #Benign essential HTN - patient's blood pressures notably elevated -will follow - focus on pain management and reassess need for a p.r.n. Antihypertensive #Asthma - without exacerbate patient's. Albuterol p.r.n. #Factor 5 Leiden - no report of GI bleeding. - Consider anticoagulation PPX if patient should stay additional day. #History of appendiceal cancer - in remission #FEN - Encourage oral intake as tolerated. - Advance diet #PPX-SCDs. Cor status-full #Disposition -possibly in am if doing better -needs further evaluation of abd pain. Subjective: Feeling a bit better today. Still unable to eat. Objective: Vital Signs Temp Pulse Resp BP Pulse Ox 37.1 C 72 16 154/86 H 94 04/15/18 13:07 04/15/18 13:17 04/15/18 13:17 04/15/18 13:17 04/15/18 13:17 04/14/18 04/15/18 04/16/18 05:59 05:59 05:59 Intake Total 900 Output Total 1200 Balance -300 - Physical Exam Constitutional: appears nourished, not in pain, No obese Eyes: PERRL, anicteric sclera, EOMI Ears, Nose, Mouth, Throat: moist mucous membranes, hearing normal, ears appear normal Cardiovascular: regular rate and rhythym, No JVD, No edema Respiratory: no respiratory distress, no rales or rhonchi, reduced air movement Gastrointestinal: normoactive bowel sounds, tenderness, No ascites Skin: warm, normal color, No mottled Musculoskeletal: normal joint ROM, no joint effusions, generalized weakness Neurologic: AAOx3 Psychiatric: interacting appropriately, not anxious, not encephalopathic ICD10 Worksheet Patient Problems: Problems Problem Status Onset Acute appendicitis Acute Urinary tract infection Acute Abdominal pain Acute
[2018-04-15] MEDS ORDERED: NALOXONE HCL 0.4 MG/ML INJ IVP PRN (13:55)
--- NOTE | 2018-04-15 14:27 | POSTANESTH ---
Post Anesthetic Evaluation Cardiovascular Status: Normal, Stable Respiratory Status: Similar to Pre-op Cond. Level of Consciousness/Mental Status: Can Participate in Eval Pain Control: Adequate, Prn Tx Ordered Nausea/Vomiting Control: Adequate, Prn Tx Ordered Complications Possibly Related to Anesthesia: None Noted
[2018-04-15] MEDS: ACETAMINOPHEN 325 MG TAB PO PRN ×2 (17:59→22:26)
[2018-04-15] MEDS: ASPIRIN 81 MG CHEWABLE TAB PO SCH (19:56)
[2018-04-16] MEDS: ACETAMINOPHEN 325 MG TAB PO PRN ×2 (04:57→09:13)
[2018-04-16 09:01] VITALS: BP 125/87
[2018-04-16] MEDS: MULTIVITAMINS 1 EACH TAB PO SCH (09:07)
[2018-04-16] MEDS: OMEGA-3 FATTY ACIDS 1,000 MG CAP PO SCH (09:07)
[2018-04-16] MEDS: PANTOPRAZOLE SODIUM 40 MG VIAL IVP SCH (09:13)
[2018-04-16] MEDS: FLUTICASONE NASAL 120 SPRAYS/16 GM MDI EACHNARE SCH (09:13)
--- NOTE | 2018-04-16 11:19 | ASMTLACE ---
LACE Length of stay for Answers: 1 day current admission Comorbidities - select Answers: Any tumor (including all that apply lymphoma or leukemia) Other Notes: HTN; Factor V Leiden # of Emergency department Answers: 1-2 visits in the last 6 months Score: 5 Date Signed: 04/16/2018 11:18 AM Electronically Signed By:Stephanie Knox RN
--- NOTE | 2018-04-16 11:21 | ASMTDCNOTE ---
Case Management Discharge Discharge Order Complete? Answers: Yes Patient to Obtain Answers: via Family Medications Transportation Arranged Answers: Family/Friends Family Notified Answers: Yes Discharge Comments Notes: Medically lceared for discharge to home. No current needs, CM available should needs arise. Date Signed: 04/16/2018 11:21 AM Electronically Signed By:Stephanie Knox RN
--- NOTE | 2018-04-16 18:48 | GDS ---
[f rep st] DISCHARGE SUMMARY DISCHARGE DIAGNOSES: 1. Viral gastroenteritis. 2. Abdominal pain. 3. Gastric thickening. 4. Nausea and vomiting. 5. Hyponatremia. 6. Hypertension. 7. Asthma. 8. History of factor V Leiden. CONSULTATIONS: Gastroenterology. STUDIES AND PROCEDURES DONE: 1. CT of the abdomen. 2. EGD. PHYSICAL EXAM: GENERAL: The patient is alert. VITAL SIGNS: Afebrile, 36.6. Pulse 79. Respirator y rate 16. Blood pressure is 125/87. She is saturating 97% on room air. I have seen, evaluated pat ient on the day of discharge. HOSPITAL COURSE: Patient is a 57-year-old female who presents to the emergency room with complaints of nausea, vomiting, diarrhea. She was evaluated and diagnosed with: 1. A viral gastroenteritis. During this hospitalization, her symptoms have completely resolved. Sh ariana is tolerating a regular diet and has no further complaints. 2. Gastric thickening. She did receive a CT of the abdomen at the beginning of her evaluation that noted gastric thickening. Consultation was performed by Gastroenterology, Dr. Beckwith. An EGD was com pleted during this hospitalization with no acute abnormalities identified. The patient will follow u p in the outpatient setting with Gastroenterology for biopsy results and further evaluation. 3. Hyponatremia in the setting of hypovolemia and has resolved with rehydration. 4. Hypertension. Patient's blood pressure has stabilized prior to disposition. 5. History of factor V Leiden. This is stable. DISPOSITION: She will be discharged home independently with her . There are no pending studi es. DISCHARGE MEDICATIONS: Please refer to EMR form. I have not provided any prescriptions at the time of disposition. FOLLOWUP: Again will be Dr. Beckwith as well as the patient's primary care physician, Dr. Luda lucas. I spent greater than 35 minutes in the care, coordination, management of patient's disposition. /[id number]/MODL
== END 2018-04-16 12:23 | disposition home or self-care (01) | DRG 392 ==
LOC: F3N 22:25 → OBSVTOIN 04-14 14:44
PROVIDERS: ADMIT Family Medicine; ATTEND Internal Medicine
DX: A08.4 Viral intestinal infection, unspecified (principal); E87.1 Hypo-osmolality and hyponatremia; E86.1 Hypovolemia; B37.81 Candidal esophagitis; K29.50 Unspecified chronic gastritis without bleeding; M62.08 Separation of muscle (nontraumatic), other site; I10 Essential (primary) hypertension; J45.909 Unspecified asthma, uncomplicated; D68.51 Activated protein C resistance; Z85.038 Personal history of other malignant neoplasm of large intestine; Z90.49 Acquired absence of other specified parts of digestive tract; Z92.21 Personal history of antineoplastic chemotherapy
CPT/HCPCS: 82435-PO; 82565-PO; 82947-PO; 84132-PO; 84295-PO; 84520-PO; 85014-ER; 96374; G0378; J2060; J2250; J2405; J2550; J2704; J3010; Q9967

== ENCOUNTER → 2018-04-13 | Outpatient (CLI) | payer BC | LOC: BMCIMAGING 16:23 | PROVIDERS: ATTEND Family Medicine | DX: R10.9 Unspecified abdominal pain (principal); M54.5 Low back pain ==